=== PATIENT | female | born 1945 | race Caucasian/White ===

== ENCOUNTER 2024-05-26 06:53 | Inpatient (IN) ==
--- NOTE | 2024-04-25 11:33 | PAT Medication Instructions ---
Medication Instructions Date of Service April 25, 2024 Home Medications ascorbic acid (vitamin C) 100 mg tablet (Vitamin C) 100 mg PO DAILY cetirizine 10 mg tablet (Zyrtec) 10 mg PO QAM cholestyramine (with sugar) 4 gram oral powder 4 g PO QDD glucosamine sulfate 500 mg tablet (Glucosamine) 500 mg PO DAILY ibuprofen 400 mg tablet 400 mg PO BID lisinopril 10 mg tablet 10 mg PO QAM multivitamin 1 tab PO QAM tramadol 50 mg tablet 50 mg PO BID cholecalciferol (vitamin D3) 125 mcg (5,000 unit) tablet (Vitamin D3) 125 mcg PO QAM diclofenac sodium 1 % topical gel 2 g topical DAILY PRN prn vitamin E (dl, acetate) 180 mg (400 unit) capsule 180 mg PO QAM ASK your surgeon for instructions ibuprofen 400 mg tablet 400 mg PO BID STOP taking 2 weeks before surgery (or as soon as possible if surgery is within 2 weeks) glucosamine sulfate 500 mg tablet (Glucosamine) 500 mg PO DAILY vitamin E (dl, acetate) 180 mg (400 unit) capsule 180 mg PO QAM STOP taking 24 hours before surgery cholestyramine (with sugar) 4 gram oral powder 4 g PO QDD diclofenac sodium 1 % topical gel 2 g topical DAILY PRN prn DO NOT take the morning of surgery ascorbic acid (vitamin C) 100 mg tablet (Vitamin C) 100 mg PO DAILY cetirizine 10 mg tablet (Zyrtec) 10 mg PO QAM lisinopril 10 mg tablet 10 mg PO QAM multivitamin 1 tab PO QAM cholecalciferol (vitamin D3) 125 mcg (5,000 unit) tablet (Vitamin D3) 125 mcg PO QAM Take morning of surgery With a small sip of water, OTHERWISE NOTHING TO EAT OR DRINK AFTER MIDNIGHT: tramadol 50 mg tablet 50 mg PO BID Take evening before surgery tramadol 50 mg tablet 50 mg PO BID Other Notes If you have any questions please call us at [phone] or [phone] or [phone] or [phone]
--- NOTE | 2024-05-01 09:28 | Anesthesiology Consultation ---
Date of Service May 01, 2024 Assessment & Plan (1) Encounter for pre-operative examination: - Infectious disease screening: Per assessment on 05/01/24- No known recent infectious disease contacts or current infectious disease symptoms. - Preop testing: Preop CXR done 05/01/24 notes "Possible mild thoracic aortic aneurysm. Chest CT could be considered for further evaluation." Note written to PCP- Awaiting PCP preop CXR response + surgeon-ordered PCP preop evaluation (Dr. Tiago Razo/Debi, appt done 05/14). Chart Review Chart Review: Patient seen in Pre Admission Testing Teaching & Discussion Pre-Anesthesia Teaching/Discussion Notes: Instructed NPO after midnight before surgery,except medications with 15 cc of water. Medication instructions provided according to the PAT guidelines. History Surgery Operation Date: 05/26/24 07:45 Proposed Procedures p L4-S1 Decompression and Fusion, Spinal Cord Monitoring, Removal Intraspinous Device - Mikey Sanchez, DO Height/Weight Height: 5 ft 3.5 in Weight: 67.7 kg Allergies Allergy/AdvReac Type Severity Reaction Status Date / Time Sulfa (Sulfonamide Allergy Unknown N/V Verified 04/25/24 11:31 Antibiotics) Medications Home Medications Medication Instructions Recorded Confirmed Last Taken ascorbic acid (vitamin C) 100 mg 100 mg PO DAILY 03/10/24 04/25/24 Unknown tablet (Vitamin C) cetirizine 10 mg tablet (Zyrtec) 10 mg PO QAM 03/10/24 04/25/24 Unknown cholestyramine (with sugar) 4 gram 4 g PO QDD 03/10/24 04/25/24 Unknown oral powder glucosamine sulfate 500 mg tablet 500 mg PO DAILY 03/10/24 04/25/24 Unknown (Glucosamine) ibuprofen 400 mg tablet 400 mg PO BID 03/10/24 04/25/24 Unknown lisinopril 10 mg tablet 10 mg PO QAM 03/10/24 04/25/24 Unknown multivitamin 1 tab PO QAM 03/10/24 04/25/24 Unknown tramadol 50 mg tablet 50 mg PO BID 03/10/24 04/25/24 Unknown cholecalciferol (vitamin D3) 125 125 mcg PO QAM 04/25/24 04/25/24 Unknown mcg (5,000 unit) tablet (Vitamin D3) diclofenac sodium 1 % topical gel 2 g topical DAILY PRN prn 04/25/24 04/25/24 Unknown vitamin E (dl, acetate) 180 mg 180 mg PO QAM 04/25/24 04/25/24 Unknown (400 unit) capsule Past Medical History Medical History Arthritis Bunion Left great toe; to have repaired prior to back surgery (05/02/24) at [facility] CKD (chronic kidney disease) Environmental and seasonal allergies History of COVID-19 (2022) Symptoms resolved HTN (hypertension) Hyperlipidemia IBS (irritable bowel syndrome) Spinal stenosis Exercise / Class Metabolic Activity III < 4 Walking/Shop/Light housework Past Family History Family History Other No family history of adverse response to anesthesia Past Surgical History Surgical History History of cataract surgery B/L History of lumbar surgery History of open reduction and internal fixation (ORIF) procedure Femur right History of right hip replacement Hx of section Hx of colonoscopy Hx of tonsillectomy Past Anesthesia History No Hx of Anesthesia Complications and No Family Hx of Anesthesia Complications History of PONV No Hx of PONV and Hx of Motion Sickness Social History Smoking Status: Former smoker Do You Dip or Chew Tobacco: No Smoking End Date: Quit 2015 Hx Alcohol Use: No Hx Substance Use: No substance use type: does not use Review of Systems Patient denies chest pain, shortness of breath, fever, chills, cough, wheezing, palpitations. Physical Exam Vital Signs BP 129/82 P 68 TEMP 98.8 SP02 95%RA RESP 16 Physical Full cervical extension range of motion. Full TMJ range of motion. TMD > 3.5 finger breaths Mallampati Score II Dentition: missing molars, 2 implants, several crowns Lungs: clear throughout to auscultation Cardiac: regular rate and rhythm, no murmurs noted Spine: normal Carotid arteries: negative bruit Extremities: no LE edema Lab Results Anesthesia Preop Results Results Anesthesia Widget: WBC 10.66 K/ul (4.8-10.8) 05/01/24 Hgb 13.9 g/dl (12.0-16.0) 05/01/24 Hct 43.0 % (37.0-47.0) 05/01/24 Plt 267 K/uL (130-400) 05/01/24 Na 138 mmol/L (136-145) 05/01/24 K 4.9 mmol/L (3.5-5.1) 05/01/24 Cl 106 mmol/L (98-107) 05/01/24 CO2 25 mmol/L (21-32) 05/01/24 BUN 31 mg/dl (6-23) H 05/01/24 Creat 1.10 mg/dl (0.6-1.2) 05/01/24 Glucose Level 83 mg/dl (70-99(Fasting)) 05/01/24 PT 10.6 Seconds (9.0-12.0) 05/01/24 PTT 27 Seconds (21-31) 05/01/24 INR 1.0 (0.9-1.1) 05/01/24 Urine Color Yellow 05/01/24 Urine Appearance Clear (Clear) 05/01/24 Urine pH 5.0 (4.5-7.5) 05/01/24 Urine Specific [place] 1.009 (1.000-1.030) 05/01/24 Urine Protein Negative (Negative) 05/01/24 Urine Glucose (UA) Negative (Negative) 05/01/24 Urine Ketones Negative (Negative) 05/01/24 Urine Blood Negative (Negative) 05/01/24 Urine Nitrite Negative (Negative) 05/01/24 Urine Bilirubin Negative (Negative) 05/01/24 Urine Urobilinogen Negative (Negative) 05/01/24 Urine Leukocyte Esterase Trace (Negative) H 05/01/24 Urine WBC (Auto) 0-5 /hpf (0-5) 05/01/24 Urine RBC (Auto) 0-2 /hpf (0-2) 05/01/24 Urine Hyaline Casts (Auto) 0-2 /lpf (0-2) 05/01/24 Urine Epithelial Cells (Auto) 3-5 /hpf (0-2) H 05/01/24 Urine Bacteria (Auto) None Seen (None Seen) 05/01/24 Blood Type O Positive 05/01/24 Antibody Screen NEGATIVE 05/01/24 Testing Electrocardiogram Date: 04/18/24 SR with short MT at 65bpm. "Otherwise normal ECG" Chest X-Ray Date: 05/01/24 Findings: There are no confluent pulmonary infiltrates. The heart size is within normal limits. No pleural effusion or pneumothorax is seen. There is no definite pulmonary nodule. There is a possible mild thoracic aortic aneurysm. No fracture is noted. There is mild thoracic and lumbar scoliosis. Impression: Possible mild thoracic aortic aneurysm. Chest CT could be considered for further evaluation.
--- OUTSIDE RECORDS SUMMARY | 2024-05-26 07:10 | External Medical Summary | Continuity of Care Document ---
Author Name Unknown Organization [facility] Address [address] [place] [address] Phone [phone] Care Team Providers Care Wound Care Coordinator Name Role Phone Rheumatology [facility] - Rheumatology Care Team Inform ation [employer] [phone] Mikey Sanchez DO Care Team Information Receive r [phone] Problems Active Problems Provider Date Essential hypertension Tiago Razo MD Onset: 0 10/18/2012 Mixed hyperlipidemia Tiago Razo MD Onset: 02/2015 History of polyp of colon Tiago Razo MD Onset : 10/18/2012 Osteopenia Tiago Razo MD Onset: 03/17/20 15 History of tobacco use Tiago Razo MD Onset: 1 Osteoarthritis of multiple joints Tiago Razo MD Onset: 04/05/2016 Abdominal aortic aneurysm Tiago Razo MD Onset : 12/26/2023 Chronic kidney disease stage 3A Tiago Razo MD Onset: 02/06/2022 Irritable bowel syndrome with diarrhea Tiago sanchez MD Onset: 01/20/2021 Hypertensive chronic kidney disease with stage 1 through stage 4 chronic kidney disease, or unspecified chronic kidney disease Tiago Razo MD Onset: 10/24/2017 Chronic kidney disease stage 3 Tiago Razo MD Onset: 10/24/2017 Social History Type Date Description Comments Sex Unknown Tobacco Use Start: Unknown End: Unknown Former Cigarette Smoker quit 2012 (former 1/2 ppd x 30yr) Cigarette Use 09/29/2015 Quit - Age 68 Smoking Status Reviewed: 04/28/24 Former Cigarette Smo ker quit 2012 (former 1/2 ppd x 30yr) Tobacco Use Start: Unknown Never Smoked Cigars Tobacco Use Start: Unknown Never Smoked A Pipe Smokeless Tobacco Never Used Smo keless Tobacco ETOH Use Rarely consumes alcohol Recreational Drug Use Denies Drug Use Exercise Type/Frequency Exercises sporadi susan Allergies and adverse reactions Active Allergies Criticality Reaction | Severity Comments Date Environmental Unable to assess criticality 10/18/2012 Sulpha Unable to assess criticality any meds with sulpha 10/18/2012 Sulfa Antibiotics Unable to assess criticality Medications Active Medications SIG Qnty Indications Ordering Provider Date [id number] Packet Mix And Drink 1 Packet In 8 Ounces Of Fluid Daily 90units K58.0 Lacho Appiah MD 08/10/2023 [id number] Tablets Take 1 Tablet Daily 90tabs I10 Tiago Razo MD 04/03/2022 I12.9 Tramadol RAU75mp Tablets Take 3 Tablets Daily 270tabs M15.9 Tiago Razo MD 10/18/2012 Aspir-[address] 1 po qd 30tabs Tiago Razo MD Zyrtec Vktukyp24gi Capsules 1 tab daily. 30caps Tiago Razo MD Vitamin [id number] Capsules 1 po qd OTC Tiago Razo MD Vit C250mg Tablets 1 po qd otc Tiago sanchez MD Womens MultiCapsules 1 po qd Tiago sanchez MD Glucosamine 1500 [id number] Capsules 1 po qd Tiago Razo MD History Medications [id number] Capsules 1 by mouth twice a day 180caps M15.9 Tiago Razo MD 11/15/2023 - 04/28/2024 Immunizations CPT Code Status Date Vaccine Lot # [id number] Given 02/25/2024 Covid-19 Vaccine Pfizer A ge 12+ 78923 Given 02/25/2024 Influenza Vaccine-Adminis tered at another facility 56531 Given 05/19/2022 Shingrix 13101 Given 03/14/2022 Shingrix 03781 Given 02/06/2022 Moderna Covid-1 9 Vaccine 50mcg Booster-EMR Doc Only [id number] 79300 Given 07/25/2021 Pfizer Sars-Cov -2 (Cov-19) vacc 30mcg/0.3ML 12Y+ EMR Doc Only 73833 Given 08/20/2020 Pfizer Sars-Cov -2 (Cov-19) vacc 30mcg/0.3ML 12Y+ EMR Doc Only 83028 Given 07/25/2020 Pfizer Sars-Cov -2 (Cov-19) vacc 30mcg/0.3ML 12Y+ EMR Doc Only 15917 Given 03/22/2020 Influenza Vaccine-Adminis tered at another facility 93300 Given 03/26/2019 Influenza Vacci ne, Inactivated, Subunit, Adjuvanted, For Intrmusc 68537 Given 03/01/2018 Influenza Vac, Split, Preservative Free High Dose Age 65 & > [id number] 09439 Given 04/20/2017 Influenza Vac, Split, Preservative Free High Dose Age 65 & > [id number] 67664 Given 04/06/2016 Influenza Vac, Split, Preservative Free High Dose Age 65 & > [id number] 03422 Given 03/19/2015 Pneumococcal Conjugate-Pr evnar 13 65128 Given 03/19/2015 Influenza Vac, Split, Preservative Free High Dose Age 65 & > [id number] 70778 Given 03/04/2014 Influenza Vac, Split 6 Mo nths And Older 21374 Given 10/18/2012 Zostavax-PT Supplied [id number] 67437 Given 09/29/2011 Pneumococcal Vaccine/Pneu movax 23 20815 Given 06/14/2010 Influenza Vac, Split 6 Mo nths And Older 30333 Given 04/22/2009 Influenza Vac, Split 6 Mo nths And Older 15740 Given 04/30/2008 Influenza Vac, Split 6 Mo nths And Older 09341 Given 03/26/2003 Influenza Vac, Split 6 Mo nths And Older 42349 Given 05/05/2002 Influenza Vac, Split 6 Mo nths And Older Vital Signs Date Vital Result Comment 04/28/2024 8:53am BP Systolic 156 mmHg BP Diastolic 90 mmHg BP Systolic Recheck 140 mmHg BP Diastolic Recheck 88 mmHg Body Temperature 97.4 F Heart Rate 65 /min Respiratory Rate 16 /min Weight 149.12 lb Weight 67.643 kg Height 63 inches 5'3" BMI (Body Mass Index) 26.4 kg/m2 O2 % BldC Oximetry 98 % ra Delta Body Weight 115 lb 12/26/2023 8:27am BP Systolic 132 mmHg BP Diastolic 84 mmHg Heart Rate 76 /min Respiratory Rate 16 /min Weight 142.00 lb Weight 64.411 kg Height 63 inches 5'3" BMI (Body Mass Index) 25.2 kg/m2 Delta Body Weight 115 lb Results Test Acquired Date Facility Test Result H/L Range N ote BMP 12/19/2023 [facility] [address] [place] [address] [phone] Glucose 83 mg/dL 70-110 BUN 22 mg/dL 6-25 Creatinine 1.2 mg/dL 0.5-1.2 Sodium 144 mEq/L 135-145 Potassium 4.7 mEq/L 3.5-5.0 Chloride 108 mEq/L High 95-107 Co-2 27 mEq/L 24-31 Calcium 9.3 mg/dL 8.5-10.6 GFR 46 ML/MIN/1.73SQM Low >60 Procedures Date Code Description Status 04/28/2024 3079F PVRP Diastolic BP 80-89 MMHG Completed 04/28/2024 3077F PVRP Systolic BP >/= 140 MMH G Completed 12/26/2023 G2211 Continuation of care e/m vis it add on Completed 12/26/2023 3079F PVRP Diastolic BP 80-89 MMHG Completed 12/26/2023 3075F PVRP Systolic BP 130 To 139 MMHG Completed 12/19/2023 63080 Venipuncture Routine Complet ed 10/15/2023 [id number] Mammogram Completed 06/13/2022 [id number] Colonoscopy Completed 01/06/2020 [id number] Bone Mineral Density Test Co mpleted Medical Devices Description No Information Available Encounters Type Date Location Provider Dx Diagnosis Office Visit 04/28/2024 9:00a ALICE Ceja M79.675 Pain in left toe(s) I10 Essential (primary) hypertension N18.30 Chronic kidney disea se, stage 3 unspecified 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-4/unsp chr kdny I71.40 Abdominal aortic ane urysm, without rupture, unspecified M15.9 Polyosteoarthritis, unspecified Office Visit 12/26/2023 8:30a Debi Razo MD I 12.9 Hypertensive chronic kidney disease w stg 1-4/unsp chr kdny N18.31 Chronic kidney disea se, stage 3a I71.40 Abdominal aortic ane urysm, without rupture, unspecified E78.2 Mixed hyperlipidemia K58.0 Irritable bowel synd eva with diarrhea M15.9 Polyosteoarthritis, unspecified M54.50 Low back pain, unspe cified Assessments Date Code Description Provider 04/28/2024 M79.675 Pain in left toe(s) Jazzmine O . [place], [employer] 04/28/2024 I10 Essential (primary) hyperten marlene Jazzmine O. [place], [employer] 04/28/2024 N18.30 Chronic kidney disease, stag e 3 unspecified Jazzmine O. [place], [employer] 04/28/2024 I12.9 Hypertensive chr onic kidney disease with stage 1 through stage 4 chronic kidney disease, or unspecified chronic kidney disease Jazzmine O. [place], [employer] 04/28/2024 I71.40 Abdominal aortic aneurysm, without rupture, unspecified Jazzmine O. [place], [employer] 04/28/2024 M15.9 Polyosteoarthritis, unspecif ied Jazzmine O. [place], [employer] 12/31/2023 I71.40 Abdominal aortic aneurysm, without rupture, unspecified Daren Patel MD 12/31/2023 I71.40 Abdominal aortic aneurysm, without rupture, unspecified Tiago Razo MD 12/31/2023 I71.40 Abdominal aortic aneurysm, without rupture, unspecified ECHO [facility] 12/26/2023 I12.9 Hypertensive chr onic kidney disease with stage 1 through stage 4 chronic kidney disease, or unspecified chronic kidney disease Tiago Razo MD 12/26/2023 N18.31 Chronic kidney disease, stag e 3a Tiago Razo MD 12/26/2023 I71.40 Abdominal aortic aneurysm, without rupture, unspecified Tiago Razo MD 12/26/2023 E78.2 Mixed hyperlipidemia Tiago clay MD 12/26/2023 K58.0 Irritable bowel syndrome wit h diarrhea Tiago Razo MD 12/26/2023 M15.9 Polyosteoarthritis, unspecif ied Tiago Razo MD 12/26/2023 M54.50 Low back pain, unspecified A venkatesh Razo MD 12/19/2023 N18.31 Chronic kidney disease, stag e 3a Tiago Razo MD 12/19/2023 N18.31 Chronic kidney disease, johnathan e 3a [facility] Nurse Plan of Treatment Future Appointment(s):* 05/14/2024 9:00 am - ALICE Louie at [facility] 04/28/2024 - ALICE Benitez* M79.675 Pain in left toe(s)* Comments:* Pending osteotomy of left proximal phalanx of hallux with Dr. Dickson. Would prefer she have a 2nd pre operative exam to see how she does with this procedure prior to clearing for spinal fusion. * I10 Essential (primary) hypertension* Comments:* At goal on repeat. Patient sites white coat syndrome BP at goal at home over the weekend, per patient. * N18.30 Chronic kidney disease, stage 3 unspecified* Comments:* CKD 3b Recent GFR 43 * I12.9 Hypertensive chronic kidney disease with stage 1 through stage 4 chronic kidney disease, or unspecified chronic kidney disease* Comments:* labs stable BP improved on recheck. * I71.40 Abdominal aortic aneurysm, without rupture, unspecified* Comments:* small AAA 3.3 cm. asymptomatic * M15.9 Polyosteoarthritis, unspecified* Comments:* Refill requested to mail order pharmacy today. Functional Status Description No Information Available Mental Status Description No Information Available Referrals Refer to Reason for Referral Status Appt Mikey Mckeon DO Closed 4 [facility] [address] [place] [address], [id number] [phone]
--- OUTSIDE RECORDS SUMMARY | 2024-05-26 07:10 | External Medical Summary | Continuity of Care Document ---
Author Name Unknown Organization [facility] Address [address] [place] [address] Phone [phone] Care Team Providers Care Polishing Machine Operator Helper Name Role Phone Rheumatology [facility] - [facility]ology Care Team Inform ation Paper And Prints Restorer [phone] Mikey Sanchez DO Care Team Information Receive r [phone] Problems Active Problems Provider Date Essential hypertension [...] Quit - Age 68 Smoking Status Reviewed: 05/14/24 Former Cigarette Smo ker quit 2012 (former [...] Medications SIG Qnty Indications Ordering Provider Date Aacvybvqxfkemo0cd Packet Mix And Drink 1 Packet In 8 Ounces Of Fluid Daily 90units K58.0 Lacho Appiah MD 08/10/2023 Cimnizlbfc12ph Tablets Take 1 Tablet Daily 90tabs I10 Tiago Razo MD 04/03/2022 I12.9 Tramadol USR05qw Tablets Take 3 Tablets Daily 270tabs M15.9 Tiago Razo MD 10/18/2012 Zyrtec Abysemt38ad Capsules 1 tab daily. 30caps Tiago Razo MD Vitamin F3349Pyob Capsules 1 po qd OTC Tiago Razo MD Vit C250mg Tablets 1 po qd otc Tiago sanchez MD Womens MultiCapsules 1 po qd Tiago sanchez MD Glucosamine 1500 Btwlrau1039Aer Capsules 1 po qd Tiago Razo MD Vitamin D3 Extra Atygrenz46ynf (1000 Ut) Chewtabs 1 by mouth every day Unknown History Medications Dgafahzdpw664bs Capsules 1 by mouth twice a day 180caps M15.9 Tiago Razo MD 11/15/2023 - 04/28/2024 Immunizations CPT Code Status Date Vaccine Lot # [id number] Given 02/25/2024 Covid-19 Vaccine Pfizer A ge 12+ 15134 Given 02/25/2024 Influenza Vaccine-Adminis tered at another facility 72637 Given 05/19/2022 Shingrix 64861 Given 03/14/2022 Shingrix 92766 Given 02/06/2022 Moderna Covid-1 9 Vaccine 50mcg Booster-EMR Doc Only [id number] 27875 Given 07/25/2021 Pfizer Sars-Cov -2 (Cov-19) vacc 30mcg/0.3ML 12Y+ EMR Doc Only 29321 Given 08/20/2020 Pfizer Sars-Cov -2 (Cov-19) vacc 30mcg/0.3ML 12Y+ EMR Doc Only 03232 Given 07/25/2020 Pfizer Sars-Cov -2 (Cov-19) vacc 30mcg/0.3ML 12Y+ EMR Doc Only 64114 Given 03/22/2020 Influenza Vaccine-Adminis tered at another facility 41005 Given 03/26/2019 Influenza Vacci ne, Inactivated, Subunit, Adjuvanted, For Intrmusc 19981 Given 03/01/2018 Influenza Vac, Split, Preservative Free High Dose Age 65 & > [id number] 63521 Given 04/20/2017 Influenza Vac, Split, Preservative Free High Dose Age 65 & > [id number] 82012 Given 04/06/2016 Influenza Vac, Split, Preservative Free High Dose Age 65 & > [id number] 61816 Given 03/19/2015 Pneumococcal Conjugate-Pr evnar 13 64543 Given 03/19/2015 Influenza Vac, Split, Preservative Free High Dose Age 65 & > [id number] 59942 Given 03/04/2014 Influenza Vac, Split 6 Mo nths And Older 84838 Given 10/18/2012 Zostavax-PT Supplied [id number] 153 19444 Given 09/29/2011 Pneumococcal Vaccine/Pneu movax 23 93420 Given 06/14/2010 Influenza Vac, Split 6 Mo nths And Older 63127 Given 04/22/2009 Influenza Vac, Split 6 Mo nths And Older 11753 Given 04/30/2008 Influenza Vac, Split 6 Mo nths And Older 00977 Given 03/26/2003 Influenza Vac, Split 6 Mo nths And Older 13628 Given 05/05/2002 Influenza Vac, Split 6 Mo nths And Older Vital Signs Date Vital Result Comment 05/14/2024 9:11am BP Systolic 134 mmHg BP Diastolic 84 mmHg Body Temperature 98.0 F Heart Rate 72 /min Respiratory Rate 16 /min Weight 142.00 lb Weight 64.411 kg Height 63 inches 5'3" BMI (Body Mass Index) 25.2 kg/m2 O2 % BldC Oximetry 98 % [place] Body Weight 115 lb 04/28/2024 8:53am BP Systolic 156 mmHg BP Diastolic 90 mmHg BP Systolic Recheck 140 mmHg BP Diastolic Recheck 88 mmHg Body Temperature 97.4 F Heart Rate 65 /min Respiratory Rate 16 /min Weight 149.12 lb Weight 67.643 kg Height 63 inches 5'3" BMI (Body Mass Index) 26.4 kg/m2 O2 % BldC Oximetry 98 % ra [place] Body Weight 115 lb Results Test Acquired Date Facility Test Result H/L Range N ote BMP 12/19/2023 [facility]. [address] [place], [place] [address] [phone] Glucose 83 mg/dL 70-110 BUN 22 mg/dL 6-25 Creatinine 1.2 mg/dL 0.5-1.2 Sodium 144 mEq/L 135-145 Potassium 4.7 mEq/L 3.5-5.0 Chloride 108 mEq/L High 95-107 Co-2 27 mEq/L 24-31 Calcium 9.3 mg/dL 8.5-10.6 GFR 46 ML/MIN/1.73SQM Low >60 Procedures Date Code Description Status 05/14/2024 3079F PVRP Diastolic BP 80-89 MMHG Completed 05/14/2024 3075F PVRP Systolic BP 130 To 139 MMHG Completed 04/28/2024 3079F PVRP Diastolic BP 80-89 MMHG Completed 04/28/2024 3077F PVRP Systolic BP >/= 140 MMH G Completed 12/26/2023 G2211 Continuation of care e/m vis it add on Completed 12/26/2023 3079F PVRP Diastolic BP 80-89 MMHG Completed 12/26/2023 3075F PVRP Systolic BP 130 To 139 MMHG Completed 12/19/2023 85821 Venipuncture Routine Complet ed 10/15/2023 [id number] Mammogram Completed 06/13/2022 [id number] Colonoscopy Completed 01/06/2020 [id number] Bone Mineral Density Test Co mpleted Medical Devices Description No Information Available Encounters Type Date Location Provider Dx Diagnosis Office Visit 05/14/2024 9:00a ALICE Centeno Z01.810 Encounter for preprocedural cardiovascular examination M54.50 Low back pain, unspe cified I10 Essential (primary) hypertension 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-4/unsp chr kdny N18.31 Chronic kidney disea se, stage 3a I71.40 Abdominal aortic ane urysm, without rupture, unspecified Z68.25 Body mass index [BMI ] 25.0-25.9, adult Office Visit 04/28/2024 9:00a ALICE Villegas M79.675 Pain in left toe(s) I10 Essential [...] unspe cified Assessments Date Code Description Provider 05/14/2024 Z01.810 Encounter for pr eprocedural cardiovascular examination ALICE Louie 05/14/2024 M54.50 Low back pain, unspecified T ALICE Rubalcava 05/14/2024 I10 Essential (primary) hyperten marlene ALICE Louie 05/14/2024 I12.9 Hypertensive chr onic kidney disease with stage 1 through stage 4 chronic kidney disease, or unspecified chronic kidney disease ALICE Louie 05/14/2024 N18.31 Chronic kidney disease, stag e 3a ALICE Louie 05/14/2024 I71.40 Abdominal aortic aneurysm, without rupture, unspecified ALICE Louie 05/14/2024 Z68.25 Body mass index [BMI] 25.0-2 5.9, adult ALICE Louie 04/28/2024 M79.675 Pain in left toe(s) ALICE Jeffries 04/28/2024 I10 Essential (primary) hyperten marlene Jazzmine Alejandro, ALICE 04/28/2024 N18.30 Chronic kidney d isease, stage 3 unspecified Jazzmine Alejandro, ALICE 04/28/2024 I12.9 Hypertensive chr onic kidney disease with stage 1 through stage 4 chronic kidney disease, or unspecified chronic kidney disease Jazzmine Alejandro, ALICE 04/28/2024 I71.40 Abdominal aortic aneurysm, without rupture, unspecified Jazzmine Alejandro, ALICE 04/28/2024 M15.9 Polyosteoarthritis, unspecif ied Jazzmine Alejandro, ALICE 12/31/2023 I71.40 Abdominal aortic aneurysm, without rupture, unspecified Daren Patel MD 12/31/2023 I71.40 Abdominal aortic aneurysm, without rupture, unspecified Tiago Razo MD 12/31/2023 I71.40 Abdominal aortic aneurysm, without rupture, unspecified ECHO Debi 12/26/2023 I12.9 Hypertensive chr onic kidney disease with stage 1 through stage 4 chronic kidney disease, or unspecified chronic kidney disease Tiago Razo MD 12/26/2023 N18.31 Chronic kidney disease, statrey ludwig 3a Tiago Razo MD 12/26/2023 I71.40 Abdominal aortic aneurysm, without rupture, unspecified Tiago Razo MD 12/26/2023 E78.2 Mixed hyperlipidemia Tiago clay MD 12/26/2023 K58.0 Irritable bowel syndrome wit h diarrhea Tiago Razo MD 12/26/2023 M15.9 Polyosteoarthritis, unspecif ied Tiago Razo MD 12/26/2023 M54.50 Low back pain, unspecified A venkatesh Razo MD 12/19/2023 N18.31 Chronic kidney disease, bry Razo MD 12/19/2023 N18.31 Chronic kidney disease, bry Carrera Nurse Plan of Treatment 05/14/2024 - ALICE Louie* Z01.810 Encounter for preprocedural cardiovascular examination* Comments:* After reviewing patient's history, performing a thorough H&P and reviewing labs and EKG, patient is at an acceptable risk of proposed procedure scheduled on 05/26/[address] Sanchez. * Follow up:* please send completed consult note * M54.50 Low back pain, unspecified * I10 Essential (primary) hypertension* Comments:* BP at goal * I12.9 Hypertensive chronic kidney disease with stage 1 through stage 4 chronic kidney disease, or unspecified chronic kidney disease* Comments:* stable GFR 51 * N18.31 Chronic kidney disease, stage 3a* Comments:* as above * I71.40 Abdominal aortic aneurysm, without rupture, unspecified* Comments:* incidental finding small AAA 3.3 cm. asymptomatic * Z68.25 Body mass index [BMI] 25.0-25.9, adult Functional Status Description No Information Available Mental Status Description No Information Available Referrals Refer to Reason for Referral Status Appt Mikey Mckeon DO Closed [address] [place] [address] [place] [address], [place] [address] [phone]
--- OUTSIDE RECORDS SUMMARY | 2024-05-26 07:10 | External Medical Summary | Continuity of Care Document ---
Author Name Unknown Organization [facility] Address [address] [place] [address] Phone [phone] Care Team Providers Care Investment Broker Name Role Phone Rheumatology [facility] - Rheumatology Care Team Inform ation Home Health Administrator [phone] Mikey Sanchez DO Care Team Information Receive r [phone] Problems Active Problems Provider Date Essential hypertension [...] Medications SIG Qnty Indications Ordering Provider Date Minukzhjqdmtwq3uj Packet Mix And Drink 1 Packet In 8 Ounces Of Fluid Daily 90units K58.0 Lacho Appiah MD 08/10/2023 Nwsetaxtxa79te Tablets Take 1 Tablet Daily 90tabs I10 Tiago Razo MD 04/03/2022 I12.9 Tramadol YJY21ar Tablets Take 3 Tablets Daily 270tabs M15.9 Tiago Razo MD 10/18/2012 Zyrtec Gaxwexu57xm Capsules 1 tab daily. 30caps Tiago Razo MD Vitamin I8827Rejo Capsules 1 po qd OTC Tiago Razo MD Vit C250mg Tablets 1 po qd otc Tiago sanchez MD Womens MultiCapsules 1 po qd Tiago sanchez MD Glucosamine 1500 Blmpcck5727Jkn Capsules 1 po qd Tiago Razo MD Vitamin D3 Extra Elhupwhq73hbd (1000 Ut) Chewtabs 1 by mouth every day Unknown History Medications Gxncoabheo734gl Capsules 1 by mouth twice a day 180caps M15.9 Tiago Razo MD 11/15/2023 - 04/28/2024 Immunizations CPT Code Status Date Vaccine Lot # [id number] Given 02/25/2024 Covid-19 Vaccine Pfizer A ge 12+ 57849 Given 02/25/2024 Influenza Vaccine-Adminis tered at another facility 25153 Given 05/19/2022 Shingrix 29083 Given 03/14/2022 Shingrix 84885 Given 02/06/2022 Moderna Covid-1 9 Vaccine 50mcg Booster-EMR Doc Only [id number] 04577 Given 07/25/2021 Pfizer Sars-Cov -2 (Cov-19) vacc 30mcg/0.3ML 12Y+ EMR Doc Only 66161 Given 08/20/2020 Pfizer Sars-Cov -2 (Cov-19) vacc 30mcg/0.3ML 12Y+ EMR Doc Only 02765 Given 07/25/2020 Pfizer Sars-Cov -2 (Cov-19) vacc 30mcg/0.3ML 12Y+ EMR Doc Only 60024 Given 03/22/2020 Influenza Vaccine-Adminis tered at another facility 19429 Given 03/26/2019 Influenza Vacci ne, Inactivated, Subunit, Adjuvanted, For Intrmusc 05598 Given 03/01/2018 Influenza Vac, Split, Preservative Free High Dose Age 65 & > [id number] 34339 Given 04/20/2017 Influenza Vac, Split, Preservative Free High Dose Age 65 & > [id number] 37521 Given 04/06/2016 Influenza Vac, Split, Preservative Free High Dose Age 65 & > [id number] 79895 Given 03/19/2015 Pneumococcal Conjugate-Pr evnar 13 53896 Given 03/19/2015 Influenza Vac, Split, Preservative Free High Dose Age 65 & > [id number] 16733 Given 03/04/2014 Influenza Vac, Split 6 Mo nths And Older 08985 Given 10/18/2012 Zostavax-PT Supplied [id number] 153 05913 Given 09/29/2011 Pneumococcal Vaccine/Pneu movax 23 02282 Given 06/14/2010 Influenza Vac, Split 6 Mo nths And Older 02517 Given 04/22/2009 Influenza Vac, Split 6 Mo nths And Older 78476 Given 04/30/2008 Influenza Vac, Split 6 Mo nths And Older 86090 Given 03/26/2003 Influenza Vac, Split 6 Mo nths And Older 92846 Given 05/05/2002 Influenza Vac, Split 6 Mo nths And Older Vital Signs Date Vital Result Comment 05/14/2024 9:11am BP Systolic 134 mmHg BP Diastolic 84 mmHg Body Temperature 98.0 F Heart Rate 72 /min Respiratory Rate 16 /min Weight 142.00 lb Weight 64.411 kg Height 63 inches 5'3" BMI (Body Mass Index) 25.2 kg/m2 O2 % BldC Oximetry 98 % [place] Body Weight 115 lb 04/28/2024 8:53am BP Systolic 156 mmHg BP Diastolic 90 mmHg BP Systolic Recheck 140 mmHg BP Diastolic Recheck 88 mmHg Body Temperature 97.4 F Heart Rate 65 /min Respiratory Rate 16 /min Weight 149.12 lb Weight 67.643 kg Height 63 inches 5'3" BMI (Body Mass Index) 26.4 kg/m2 O2 % BldC Oximetry 98 % ra [place] Body Weight 115 lb Results Test Acquired Date Facility Test Result H/L Range N ote BMP 12/19/2023 [facility]. [address] [place], [place] [address] [phone] Glucose 83 mg/dL 70-110 BUN 22 mg/dL [...] BP 130 To 139 MMHG Completed 12/19/2023 87737 Venipuncture Routine Complet ed 10/15/2023 [id number] Mammogram Completed 06/13/2022 [id number] Colonoscopy Completed 01/06/2020 [id number] Bone Mineral Density Test Co mpleted Medical [...] Referral Status Appt Mikey Mckeon DO Closed [address] [place] [address] [place] [address], [place] [address] [phone]
--- OUTSIDE RECORDS SUMMARY | 2024-05-26 07:10 | External Medical Summary | Continuity of Care Document ---
Author Name Unknown Organization [facility] Address [address] [place] [address] Phone [phone] Care Team Providers Care Swimmer Name Role Phone Rheumatology [facility] - Rheumatology Care Team Inform ation Diet Supervisor [phone] Mikey Sanchez DO Care Team Information Receive r [phone] Problems Active Problems Provider Date Essential hypertension [...] Medications SIG Qnty Indications Ordering Provider Date Tfibrqbkvoygkz8cl Packet Mix And Drink 1 Packet In 8 Ounces Of Fluid Daily 90units K58.0 Lacho Appiah MD 08/10/2023 Zwmtqwdfri79fk Tablets Take 1 Tablet Daily 90tabs I10 Tiago Razo MD 04/03/2022 I12.9 Tramadol ZKN08bs Tablets Take 3 Tablets Daily 270tabs M15.9 Tiago Razo MD 10/18/2012 Zyrtec Eepwwdn05fx Capsules 1 tab daily. 30caps Tiago Razo MD Vitamin U5059Ovod Capsules 1 po qd OTC Tiago Razo MD Vit C250mg Tablets 1 po qd otc Tiago sanchez MD Womens MultiCapsules 1 po qd Tiago sanchez MD Glucosamine 1500 Tbvvmvv5797Ahc Capsules 1 po qd Tiago Razo MD Vitamin D3 Extra Afvojmkq13wtu (1000 Ut) Chewtabs 1 by mouth every day Unknown History Medications Gswypkkjbl288iv Capsules 1 by mouth twice a day 180caps M15.9 Tiago Razo MD 11/15/2023 - 04/28/2024 Immunizations CPT Code Status Date Vaccine Lot # [id number] Given 02/25/2024 Covid-19 Vaccine Pfizer A ge 12+ 89313 Given 02/25/2024 Influenza Vaccine-Adminis tered at another facility 51389 Given 05/19/2022 Shingrix 37090 Given 03/14/2022 Shingrix 26328 Given 02/06/2022 Moderna Covid-1 9 Vaccine 50mcg Booster-EMR Doc Only [id number] 33736 Given 07/25/2021 Pfizer Sars-Cov -2 (Cov-19) vacc 30mcg/0.3ML 12Y+ EMR Doc Only 01379 Given 08/20/2020 Pfizer Sars-Cov -2 (Cov-19) vacc 30mcg/0.3ML 12Y+ EMR Doc Only 69891 Given 07/25/2020 Pfizer Sars-Cov -2 (Cov-19) vacc 30mcg/0.3ML 12Y+ EMR Doc Only 23075 Given 03/22/2020 Influenza Vaccine-Adminis tered at another facility 27657 Given 03/26/2019 Influenza Vacci ne, Inactivated, Subunit, Adjuvanted, For Intrmusc 59548 Given 03/01/2018 Influenza Vac, Split, Preservative Free High Dose Age 65 & > [id number] 40434 Given 04/20/2017 Influenza Vac, Split, Preservative Free High Dose Age 65 & > [id number] 15785 Given 04/06/2016 Influenza Vac, Split, Preservative Free High Dose Age 65 & > [id number] 41613 Given 03/19/2015 Pneumococcal Conjugate-Pr evnar 13 50163 Given 03/19/2015 Influenza Vac, Split, Preservative Free High Dose Age 65 & > [id number] 10770 Given 03/04/2014 Influenza Vac, Split 6 Mo nths And Older 20875 Given 10/18/2012 Zostavax-PT Supplied [id number] 153 10650 Given 09/29/2011 Pneumococcal Vaccine/Pneu movax 23 37243 Given 06/14/2010 Influenza Vac, Split 6 Mo nths And Older 75250 Given 04/22/2009 Influenza Vac, Split 6 Mo nths And Older 96179 Given 04/30/2008 Influenza Vac, Split 6 Mo nths And Older 81781 Given 03/26/2003 Influenza Vac, Split 6 Mo nths And Older 27357 Given 05/05/2002 Influenza Vac, Split 6 Mo nths And Older Vital Signs Date Vital Result Comment 05/14/2024 9:11am BP Systolic 134 mmHg BP Diastolic 84 mmHg Body Temperature 98.0 F Heart Rate 72 /min Respiratory Rate 16 /min Weight 142.00 lb Weight 64.411 kg Height 63 inches 5'3" BMI (Body Mass Index) 25.2 kg/m2 O2 % BldC Oximetry 98 % [place] Body Weight 115 lb 04/28/2024 8:53am BP Systolic 156 mmHg BP Diastolic 90 mmHg BP Systolic Recheck 140 mmHg BP Diastolic Recheck 88 mmHg Body Temperature 97.4 F Heart Rate 65 /min Respiratory Rate 16 /min Weight 149.12 lb Weight 67.643 kg Height 63 inches 5'3" BMI (Body Mass Index) 26.4 kg/m2 O2 % BldC Oximetry 98 % ra [place] Body Weight 115 lb Results Test Acquired Date Facility Test Result H/L Range N ote BMP 12/19/2023 [facility]. [address] [place], [place] [address] [phone] Glucose 83 mg/dL 70-110 BUN 22 mg/dL [...] BP 130 To 139 MMHG Completed 12/19/2023 17617 Venipuncture Routine Complet ed 10/15/2023 [id number] Mammogram Completed 06/13/2022 [id number] Colonoscopy Completed 01/06/2020 [id number] Bone Mineral Density Test Co mpleted Medical [...] Referral Status Appt Mikey Mckeon DO Closed [address] [place] [address] [place] [address], [place] [address] [phone]
--- OUTSIDE RECORDS SUMMARY | 2024-05-26 07:10 | External Medical Summary | Continuity of Care Document ---
Author Name Unknown Organization [facility] Address [address] [place] [address] Phone [phone] Care Team Providers Care Limb Driver Name Role Phone Rheumatology [facility] - Rheumatology Care Team Inform ation Sales And Marketing Vice President [phone] Mikey Sanchez DO Care Team Information Receive r [phone] Problems Active Problems Provider Date Essential hypertension [...] Medications SIG Qnty Indications Ordering Provider Date Zqowfidgvwsspj0jl Packet Mix And Drink 1 Packet In 8 Ounces Of Fluid Daily 90units K58.0 Lacho Appiah MD 08/10/2023 Pszuzsqqia93bh Tablets Take 1 Tablet Daily 90tabs I10 Tiago Razo MD 04/03/2022 I12.9 Tramadol MEA28qo Tablets Take 3 Tablets Daily 270tabs M15.9 Tiago Razo MD 10/18/2012 Zyrtec Xoerlro52uc Capsules 1 tab daily. 30caps Tiago Razo MD Vitamin V8195Bpff Capsules 1 po qd OTC Tiago Razo MD Vit C250mg Tablets 1 po qd otc Tiago sanchez MD Womens MultiCapsules 1 po qd Tiago sanchez MD Glucosamine 1500 Uzaspwj7510Wom Capsules 1 po qd Tiago Razo MD Vitamin D3 Extra Xxnraexf54oat (1000 Ut) Chewtabs 1 by mouth every day Unknown Immunizations CPT Code Status Date Vaccine Lot # [id number] Given 02/25/2024 Covid-19 Vaccine Pfizer A 12+ 11744 Given 02/25/2024 Influenza Vaccine-Adminis tered at another facility 49831 Given 05/19/2022 Shingrix 12411 Given 03/14/2022 Shingrix 49390 Given 02/06/2022 Moderna Covid-1 9 Vaccine 50mcg Booster-EMR Doc Only [id number] 76879 Given 07/25/2021 Pfizer Sars-Cov -2 (Cov-19) vacc 30mcg/0.3ML 12Y+ EMR Doc Only 99133 Given 08/20/2020 Pfizer Sars-Cov -2 (Cov-19) vacc 30mcg/0.3ML 12Y+ EMR Doc Only 78884 Given 07/25/2020 Pfizer Sars-Cov -2 (Cov-19) vacc 30mcg/0.3ML 12Y+ EMR Doc Only 79278 Given 03/22/2020 Influenza Vaccine-Adminis tered at another facility 41356 Given 03/26/2019 Influenza Vacci ne, Inactivated, Subunit, Adjuvanted, For Intrmusc 97332 Given 03/01/2018 Influenza Vac, Split, Preservative Free High Dose Age 65 & > [id number] 93966 Given 04/20/2017 Influenza Vac, Split, Preservative Free High Dose Age 65 & > [id number] 46658 Given 04/06/2016 Influenza Vac, Split, Preservative Free High Dose Age 65 & > [id number] 35639 Given 03/19/2015 Pneumococcal Conjugate-Pr evnar 13 37336 Given 03/19/2015 Influenza Vac, Split, Preservative Free High Dose Age 65 & > [id number] 51183 Given 03/04/2014 Influenza Vac, Split 6 Mo nths And Older 18998 Given 10/18/2012 Zostavax-PT Supplied [id number] 153 17925 Given 09/29/2011 Pneumococcal Vaccine/Pneu movax 23 85069 Given 06/14/2010 Influenza Vac, Split 6 Mo nths And Older 23585 Given 04/22/2009 Influenza Vac, Split 6 Mo nths And Older 29105 Given 04/30/2008 Influenza Vac, Split 6 Mo nths And Older 55224 Given 03/26/2003 Influenza Vac, Split 6 Mo nths And Older 38972 Given 05/05/2002 Influenza Vac, Split 6 Mo nths And Older Vital Signs Date Vital Result Comment 05/14/2024 9:11am BP Systolic 134 mmHg BP Diastolic 84 mmHg Body Temperature 98.0 F Heart Rate 72 /min Respiratory Rate 16 /min Weight 142.00 lb Weight 64.411 kg Height 63 inches 5'3" BMI (Body Mass Index) 25.2 kg/m2 O2 % BldC Oximetry 98 % [place] Body Weight 115 lb 04/28/2024 8:53am BP Systolic 156 mmHg BP Diastolic 90 mmHg BP Systolic Recheck 140 mmHg BP Diastolic Recheck 88 mmHg Body Temperature 97.4 F Heart Rate 65 /min Respiratory Rate 16 /min Weight 149.12 lb Weight 67.643 kg Height 63 inches 5'3" BMI (Body Mass Index) 26.4 kg/m2 O2 % BldC Oximetry 98 % ra [place] Body Weight 115 lb Results Test Acquired Date Facility Test Result H/L Range N ote BMP 12/19/2023 [facility]. [address] [place], [place] [address] [phone] Glucose 83 mg/dL 70-110 BUN 22 mg/dL [...] BP 130 To 139 MMHG Completed 12/19/2023 04130 Venipuncture Routine Complet ed 10/15/2023 [id number] Mammogram Completed 06/13/2022 [id number] Colonoscopy Completed 01/06/2020 [id number] Bone Mineral Density Test Co mpleted Medical [...] Jeffries 04/28/2024 I10 Essential (primary) hyperten marlene ALICE Benitez 04/28/2024 N18.30 Chronic kidney d isease, stage 3 unspecified ALICE Benitez 04/28/2024 I12.9 Hypertensive chr onic kidney disease [...] Abdominal aortic aneurysm, without rupture, unspecified ECHO US Carrera 12/26/2023 I12.9 Hypertensive chr onic kidney disease with stage 1 through stage 4 chronic kidney disease, or unspecified chronic kidney disease Tiago Razo MD 12/26/2023 N18.31 Chronic kidney disease, stamadonna Razo MD 12/26/2023 I71.40 Abdominal aortic aneurysm, [...] Referral Status Appt Mikey Mckeon DO Closed [address] [place] [address] [place] [address], [place] [address] [phone]
--- OUTSIDE RECORDS SUMMARY | 2024-05-26 07:10 | External Medical Summary | Continuity of Care Document ---
Author Name Unknown Organization [facility] Address [address] [place] [address] Phone [phone] Care Team Providers Care Director Of Procurement Name Role Phone Rheumatology [facility] - Rheumatology Care Team Inform ation Finishing Powder Press Operator [phone] Mikey Sanchez DO Care Team Information Receive r [phone] Problems Active Problems Provider Date Essential hypertension [...] Medications SIG Qnty Indications Ordering Provider Date Hzlygmcawjgpsw7uo Packet Mix And Drink 1 Packet In 8 Ounces Of Fluid Daily 90units K58.0 Lacho Appiah MD 08/10/2023 [id number] Tablets Take 1 Tablet Daily 90tabs I10 Tiago Razo MD 04/03/2022 I12.9 Tramadol KSS48gp Tablets Take 3 Tablets Daily 270tabs M15.9 Tiago Razo MD 10/18/2012 Zyrtec Fqrvnhx25gn Capsules 1 tab daily. 30caps Tiago Razo MD Vitamin M6225Cntu Capsules 1 po qd OTC Tiago Razo MD Vit C250mg Tablets 1 po qd otc Tiago sanchez MD Womens MultiCapsules 1 po qd Tiago sanchez MD Glucosamine 1500 [id number] Capsules 1 po qd Tiago Razo MD Vitamin D3 Extra Tgykthyg54jiv (1000 Ut) Chewtabs 1 by mouth every day Unknown History Medications [id number] Capsules 1 by mouth twice a day 180caps M15.9 Tiago Razo MD 11/15/2023 - 04/28/2024 Immunizations CPT Code Status Date Vaccine Lot # [id number] Given 02/25/2024 Covid-19 Vaccine Pfizer A ge 12+ 06210 Given 02/25/2024 Influenza Vaccine-Adminis tered at another facility 99213 Given 05/19/2022 Shingrix 56693 Given 03/14/2022 Shingrix 80029 Given 02/06/2022 Moderna Covid-1 9 Vaccine 50mcg Booster-EMR Doc Only [id number] 94075 Given 07/25/2021 Pfizer Sars-Cov -2 (Cov-19) vacc 30mcg/0.3ML 12Y+ EMR Doc Only 80987 Given 08/20/2020 Pfizer Sars-Cov -2 (Cov-19) vacc 30mcg/0.3ML 12Y+ EMR Doc Only 32520 Given 07/25/2020 Pfizer Sars-Cov -2 (Cov-19) vacc 30mcg/0.3ML 12Y+ EMR Doc Only 44642 Given 03/22/2020 Influenza Vaccine-Adminis tered at another facility 46799 Given 03/26/2019 Influenza Vacci ne, Inactivated, Subunit, Adjuvanted, For Intrmusc 94493 Given 03/01/2018 Influenza Vac, Split, Preservative Free High Dose Age 65 & > [id number] 79100 Given 04/20/2017 Influenza Vac, Split, Preservative Free High Dose Age 65 & > [id number] 19407 Given 04/06/2016 Influenza Vac, Split, Preservative Free High Dose Age 65 & > [id number] 25721 Given 03/19/2015 Pneumococcal Conjugate-Pr evnar 13 85925 Given 03/19/2015 Influenza Vac, Split, Preservative Free High Dose Age 65 & > [id number] 73648 Given 03/04/2014 Influenza Vac, Split 6 Mo nths And Older 24161 Given 10/18/2012 Zostavax-PT Supplied [id number] 11029 Given 09/29/2011 Pneumococcal Vaccine/Pneu movax 23 17986 Given 06/14/2010 Influenza Vac, Split 6 Mo nths And Older 45757 Given 04/22/2009 Influenza Vac, Split 6 Mo nths And Older 81196 Given 04/30/2008 Influenza Vac, Split 6 Mo nths And Older 66027 Given 03/26/2003 Influenza Vac, Split 6 Mo nths And Older 94046 Given 05/05/2002 Influenza Vac, Split 6 Mo nths And Older Vital Signs Date Vital Result Comment 05/14/2024 9:11am BP Systolic 134 mmHg BP Diastolic 84 mmHg Body Temperature 98.0 F Heart Rate 72 /min Respiratory Rate 16 /min Weight 142.00 lb Weight 64.411 kg Height 63 inches 5'3" BMI (Body Mass Index) 25.2 kg/m2 O2 % BldC Oximetry 98 % [place] Body Weight 115 lb 04/28/2024 8:53am BP Systolic 156 mmHg BP Diastolic 90 mmHg BP Systolic Recheck 140 mmHg BP Diastolic Recheck 88 mmHg Body Temperature 97.4 F Heart Rate 65 /min Respiratory Rate 16 /min Weight 149.12 lb Weight 67.643 kg Height 63 inches 5'3" BMI (Body Mass Index) 26.4 kg/m2 O2 % BldC Oximetry 98 % ra [place] Body Weight 115 lb Results Test Acquired Date Facility Test Result H/L Range N ote BMP 12/19/2023 [facility]. [address], [place] [id number] [phone] Glucose 83 mg/dL 70-110 BUN 22 mg/dL [...] BP 130 To 139 MMHG Completed 12/19/2023 57948 Venipuncture Routine Complet ed 10/15/2023 [id number] Mammogram Completed 06/13/2022 [id number] Colonoscopy Completed 01/06/2020 [id number] Bone Mineral Density Test Co mpleted Medical [...] Referral Status Appt Mikey Mckeon DO Closed [address] [place] [address] [place] [address], [place] [address] [phone]
[2024-05-26] MEDS: VANCOMYCIN HCL 1,000 MG/270 ML BAG IV SCH (07:45)
[2024-05-26] MEDS: ACETAMINOPHEN 500 MG TAB PO SCH (08:00)
[2024-05-26] MEDS: GABAPENTIN 300 MG CAP PO SCH (08:00)
[2024-05-26] MEDS: CeleBREX 200 MG CAP PO SCH (08:00)
[2024-05-26] MEDS: LR 15ML/HR IV SCH (08:01)
[2024-05-26] MEDS: LR 60ML/HR IV SCH (08:01)
[2024-05-26] MEDS ORDERED: fentaNYL citrate PF 100 MCG/2 ML VIAL ONE (08:37)
[2024-05-26] MEDS ORDERED: LIDOCAINE 2% 2 ML VIAL/AMP(20MG/ML) INFIL ONE (08:37)
[2024-05-26] MEDS ORDERED: DEXAMETHASONE SOD INJ 4 MG/ML VIAL ONE (08:37)
[2024-05-26] MEDS ORDERED: ROCURONIUM BROMIDE 10 MG/ML 5 ML VIAL IV ONE (08:37)
[2024-05-26] MEDS ORDERED: PROPOFOL IV EMULSION 10 MG/ML 20 ML VIAL IV ONE (08:37)
[2024-05-26] MEDS ORDERED: ONDANSETRON INJ 2 MG/ML 2 ML VIAL ONE (08:37)
--- NOTE | 2024-05-26 09:13 | History & Physical Bridge Note ---
Date of Service May 26, 2024 History & Physical Bridge Note I have examined the patient, reviewed the History & Physical and in the interval since the performance of the History & Physical I have noted the following changes of clinical significance: no changes noted
--- NOTE | 2024-05-26 09:13 | History & Physical Report ---
Date of Service May 26, 2024 Assessment & Plan (1) Lumbosacral spondylosis with radiculopathy: Plan: L4-S1 decompression and fusion removal of interspinous device History of Present Illness Chief Complaint: Back and leg pain Primary Care Provider: NO PCP This is a 71-year-old female presents chronic persistent back and leg pain and failing course of nonoperative care she is here for surgical invention. Allergies Allergy/AdvReac Type Severity Reaction Status Date / Time Sulfa (Sulfonamide Allergy Unknown N/V Verified 05/26/24 07:40 Antibiotics) Home Medications Medication Instructions Recorded Confirmed Type ascorbic acid (vitamin C) 100 mg 100 mg PO DAILY 03/10/24 05/26/24 History tablet (Vitamin C) cetirizine 10 mg tablet (Zyrtec) 10 mg PO QAM 03/10/24 05/26/24 History cholestyramine (with sugar) 4 gram 4 g PO QDD 03/10/24 05/26/24 History oral powder glucosamine sulfate 500 mg tablet 500 mg PO DAILY 03/10/24 05/26/24 History (Glucosamine) ibuprofen 400 mg tablet 400 mg PO BID 03/10/24 05/26/24 History lisinopril 10 mg tablet 10 mg PO QAM 03/10/24 05/26/24 History multivitamin 1 tab PO QAM 03/10/24 05/26/24 History tramadol 50 mg tablet 50 mg PO BID 03/10/24 05/26/24 History cholecalciferol (vitamin D3) 125 125 mcg PO QAM 04/25/24 05/26/24 History mcg (5,000 unit) tablet (Vitamin D3) diclofenac sodium 1 % topical gel 2 g topical DAILY PRN prn 04/25/24 05/26/24 History vitamin E (dl, acetate) 180 mg 180 mg PO QAM 04/25/24 05/26/24 History (400 unit) capsule Past Med/Surg History Problem List (Updated 05/26/24 @ 09:13 by Mikey Sanchez DO) Lumbosacral spondylosis with radiculopathy Encounter for pre-operative examination Medical History Arthritis Bunion Left great toe; to have repaired prior to back surgery (05/02/24) at [facility] CKD (chronic kidney disease) Environmental and seasonal allergies History of COVID-19 (2022) Symptoms resolved HTN (hypertension) Hyperlipidemia IBS (irritable bowel syndrome) Spinal stenosis Surgical History History of cataract surgery B/L History of lumbar surgery History of open reduction and internal fixation (ORIF) procedure Femur right History of right hip replacement Hx of section Hx of colonoscopy Hx of tonsillectomy Family History Other No family history of adverse response to anesthesia Social History Smoking Status: Former smoker Tobacco Type: Cigarettes Smoking End Date: Quit 2015; Second Hand Exposure: No; Do You Dip or Chew Tobacco: No; Tobacco Cessation Education Requested by Patient: No Hx Alcohol Use: No Hx Substance Use: No Preferred Language: Qatari Communication Ability: Effective Energy Efficient Site Manager Required: No Beliefs That Will Affect Care: None Current Living Situation: Spouse Other Information That Helps Us Care for You: No Feels Safe at Home: Yes Safety Concerns: Feels Safe At This Time Assistive Devices: Cane and Glasses Assistive Devices Comment: can prn Physical Exam Physical Exam: Patient is alert and oriented heart regular in rhythm lungs clear Results & Data Results & Data Vital Signs (Past 12 Hours) Vital Signs Temp Pulse Resp BP Pulse Ox O2 Del Method 05/26/24 07:43 37 C 70 20 139/73 95 Room Air
[2024-05-26] MEDS ORDERED: KETAMINE HCL 10MG/ML SYR ONE (09:22)
--- NOTE | 2024-05-26 09:41 | Anesthesiology Consultation ---
Date of Service May 26, 2024 Assessment & Plan Chart Review Chart Review: Acceptable Risk for Surgery Consults Requested none History Surgery Operation Date: 05/26/24 09:35 Proposed Procedures p L4-S1 Decompression and Fusion, Removal Intraspinous Device, Spinal Cord Monitoring - Mikey Sanchez DO Height/Weight Height: 5 ft 4 in Weight: 67.4 kg Allergies Allergy/AdvReac Type Severity Reaction Status Date / Time Sulfa (Sulfonamide Allergy Unknown N/V Verified 05/26/24 07:40 Antibiotics) Medications Home Medications Medication Instructions Recorded Confirmed Last Taken ascorbic acid (vitamin C) 100 mg 100 mg PO DAILY 03/10/24 05/26/24 05/25/24 07:00 tablet (Vitamin C) cetirizine 10 mg tablet (Zyrtec) 10 mg PO QAM 03/10/24 05/26/24 05/25/24 07:00 cholestyramine (with sugar) 4 gram 4 g PO QDD 03/10/24 05/26/24 05/24/24 17:00 oral powder glucosamine sulfate 500 mg tablet 500 mg PO DAILY 03/10/24 05/26/24 05/12/24 (Glucosamine) ibuprofen 400 mg tablet 400 mg PO BID 03/10/24 05/26/24 05/19/24 lisinopril 10 mg tablet 10 mg PO QAM 03/10/24 05/26/24 05/25/24 07:00 multivitamin 1 tab PO QAM 03/10/24 05/26/24 05/12/24 tramadol 50 mg tablet 50 mg PO BID 03/10/24 05/26/24 05/26/24 04:30 cholecalciferol (vitamin D3) 125 125 mcg PO QAM 04/25/24 05/26/24 05/25/24 07:00 mcg (5,000 unit) tablet (Vitamin D3) diclofenac sodium 1 % topical gel 2 g topical DAILY PRN prn 04/25/24 05/26/24 05/24/24 08:00 vitamin E (dl, acetate) 180 mg 180 mg PO QAM 04/25/24 05/26/24 05/12/24 (400 unit) capsule Active Medications Generic Name Dose Route Start Last Admin Trade Name Freq PRN Reason Stop Dose Admin Acetaminophen 1,000 mg 05/26/24 06:00 05/26/24 08:00 Acetaminophen 500 Mg Tab PO 05/26/24 18:00 1,000 mg PREOP ESTEFANI Administration Celecoxib 200 mg 05/26/24 06:00 05/26/24 08:00 Celebrex 200 Mg Cap PO 05/26/24 18:00 200 mg PREOP ESTEFANI Administration Gabapentin 300 mg 05/26/24 06:00 05/26/24 08:00 Gabapentin 300 Mg Cap PO 05/26/24 18:00 300 mg PREOP ESTEFANI Administration Lactated Ringer's 1,000 mls @ 15 mls/hr 05/26/24 06:00 05/26/24 08:03 Lr IV 05/27/24 05:59 0 mls/hr .Q24H ESTEFANI Infusion Lactated Ringer's 1,000 mls @ 60 mls/hr 05/26/24 06:00 05/26/24 08:01 Lr IV 05/26/24 22:39 Not Given .[id number] ESTEFANI Vancomycin HCl 1,000 mg in 270 mls @ 242 mls/hr 05/26/24 06:00 05/26/24 09:25 Vancomycin Hcl IV 05/26/24 18:00 Infused PREOP ESETFANI Infusion NPO Date Last Intake of Fluids: 05/25/24 Time Last Intake of Fluids: 17:45 Last Intake of Fluids Comment: 0430 sip water for meds Date Last Intake of Solids: 05/25/24 Time Last Intake of Solids: 21:30 Past Medical History Medical History Arthritis Bunion Left great toe; to have repaired prior to back surgery (05/02/24) at [facility] CKD (chronic kidney disease) Environmental and seasonal allergies History of COVID-19 (2022) Symptoms resolved HTN (hypertension) Hyperlipidemia IBS (irritable bowel syndrome) Spinal stenosis Past Family History Family History Other No family history of adverse response to anesthesia Past Surgical History Surgical History History of cataract surgery B/L History of lumbar surgery History of open reduction and internal fixation (ORIF) procedure Femur right History of right hip replacement Hx of section Hx of colonoscopy Hx of tonsillectomy Social History Smoking Status: Former smoker Do You Dip or Chew Tobacco: No Smoking End Date: Quit 2015 Hx Alcohol Use: No Hx Substance Use: No substance use type: does not use Physical Exam Vital Signs Last Vital Signs Temp 37 C 05/26/24 07:43 Pulse 70 05/26/24 07:43 Resp 20 05/26/24 07:43 BP 139/73 05/26/24 07:43 Pulse Ox 95 05/26/24 07:43 O2 Del Method Room Air 05/26/24 07:43 Testing Laboratory Results Blood Type O Positive 05/26/24 07:28 Antibody Screen NEGATIVE 05/26/24 07:28
[2024-05-26] MEDS ORDERED: ePHEDrine sulfate 50 MG/ML AMP IV PRN (09:49)
[2024-05-26] MEDS ORDERED: PROMETHAZINE HCL 6.25 MG in SODIUM CHLORIDE 0.9% 50 ML IV PRN (09:49)
[2024-05-26] MEDS ORDERED: ONDANSETRON INJ 2 MG/ML 2 ML VIAL IV PRN ×2 (09:49→12:47)
[2024-05-26] MEDS ORDERED: HYDROmorphone INJ 2 MG/ML SYR/VIAL IV PRN (09:49)
[2024-05-26] MEDS ORDERED: ATROPINE SULFATE 0.1 MG/ML 10ML SYR IV PRN (09:49)
[2024-05-26] MEDS ORDERED: PHENYLEPHRINE 100MCG/ML 5ML SYR ONE ×2 (09:58→10:43)
[2024-05-26] MEDS ORDERED: ePHEDrine sulfate 50 MG/5 ML SYR ONE (09:58)
[2024-05-26] MEDS: BUPIVACAINE/EPINEPHRINE 0.25% 1:200,000 30 ML VIAL ONE (10:04)
[2024-05-26] MEDS: ceFAZolin 330 MG/ML 1 GM VIAL ONE (10:05)
[2024-05-26] MEDS: FLOSEAL HEMOSTATIC MATRIX 10ML TOP ONE (11:00)
[2024-05-26] MEDS ORDERED: SUGAMMADEX SODIUM 200 MG/2 ML VIAL IV ONE (11:18)
--- NOTE | 2024-05-26 11:25 | Operative Report ---
Post Operative Report Pre & Post Diagnosis Operation Date: 05/26/24 09:35 Pre-Op Diagnosis: #1 lumbar spondylosis with radiculopathy #2 lumbar spondylolisthesis L4-5 #3 lumbar spinal stenosis with neurogenic claudication Post-Op Diagnosis: Same I identified the patient and participated in the time-out.: Yes Procedure Operation Date: 05/26/24 09:35 Actual Procedures #1 removal of posterior instrumentation L4-5. #2 revision decompression with bilateral medial facetectomies and foraminotomies L3-L4, L4-L5 L5-S1. #3 posterior spinal fusion L4-S1. #4 placement posterior instrumentation L4-S1. #5 interbody fusion L4-5. #6 placement of Spira 9 x 26 mm at L4-5. #7 placement infuse collagen sponge, with Koros in the posterior lateral gutters and os design in the interbody space. #8 placement locally harvested morselized autograft posterior gutters. #9 placement of versa wrap over the exposed dura. Surgeon Mikey Sanchez, Console Operator Jennifer Robledo Estimated Blood Loss 150 Findings Consistent with Post-Op Diagnosis Specimens None Indications This is a 79-year-old female presents above-mentioned diagnosis after failing course of nonoperative care is here for surgical invention. Description of Procedure Patient was met with identified informed consent obtained. Patient was then taken to the operative suite underwent intubation placed in a prone position on the Maury table atop the Skyler frame. All bony promises well-padded eyes inspected to ensure no external pressure placed upon them. This point the lumbar spine was prepped and draped in normal sterile fashion. Sharp dissection with the assistance of Bovie cautery form down to and exposing the instru mentation and remaining lamina and transverse processes of L4-L5 and the sacral ala bilaterally. Then proceeded to move the interlaminar construct at L4-L5. I then performed a complete revision laminectomy of L5 with bilateral medial facetectomies and foraminotomies followed by complete laminectomy of L4 with bilateral medial facetectomies and foraminotomies and lastly partial laminectomy of L3 with bilateral medial facetectomies to address all spinal stenosis. Pedicle screws were then placed in L4-L5 and S1 levels bilaterally with assistance of fluoroscopy and appropriately sized rolan placed. By way of a transforaminal approach on the right complete discectomy of L4-5 was performed endplates corrected to subcortical and bone and the 9 x 26 mm Spira cage filled with os design bone graft tapped in position. The rods were then locked in final position bilaterally. The transverse processes of L4-L5 and the sacral ala burred to subcortical bleeding bone. Infuse collagen sponge combined with Koros and local autograft placed in the posterior gutters. Versa wrap placed over the exposed dura. 15 round ANIL drain inserted. The incision was then closed with 1 Vicryl the fascia 2-0 Vicryl subcutaneously and 4 Monocryl for final skin closure. Please note spinal cord monitoring was utilized at the procedure no changes noted. Jennifer Robledo was present at the entire procedure and brought the patient positioning complex portion of the surgery and final skin closure. Im ordering 20 grams of Triple [place] Collagen Powder ([employer] [id number]) to treat an incision wound that was caused by a spine procedure. The incision is approximately 2 cm(W) x 4 cm(L) into the joint (D) in size and is a full thickness wound. Triple [place] collagen comes in 1 gram packets so 20 packets were ordered. Given the size of the wound, with light to moderate exudate I chose to order a 20 day supply. The patient will be provided instructions for proper application of the collagen wound kit. The patient will be asked to apply the collagen powder daily and then cover it with sterile dressings dispensed. Collagen was selected as I expect the collagen to attract monocytes and fibroblasts, act as a sacrificial substrate for MMPs, and ultimately proved a matrix for tissue and vessel growth. The collagen will act as a primary dressing in this scenario. It is medically necessary for proper healing of t hese wounds to improve bioavailability and contact with each wound surface, this is also to help prevent infection of wounds and promote healing ultimately leading to a better healing outcome and limit the risk of infection. I attest to the content of the Intraoperative Record and any orders documented therein. Any exceptions are noted below.
[2024-05-26] MEDS: fentaNYL citrate PF 100 MCG/2 ML VIAL IV PRN (11:46)
--- NOTE | 2024-05-26 11:54 | Fluoroscopy Report ---
FL lumbar spine 2-3V CLINICAL HISTORY: L4-S1 DECOMP/FUSION COMPARISON STUDY: None. FLUOROSCOPY TIME: 26.4 seconds. Ka,r: 19.37 mGy FLUOROSCOPIC IMAGES: 2 FINDINGS: Fluoroscopy was provided during L4-L5 discectomy with interbody spacer placement. Posterior decompression is noted with bilateral pedicle screw fusion from L4 through S1. Hardware is intact. IMPRESSION: Fluoroscopy provided during L4-L5 discectomy and L4-S1 posterior decompression and fusio n. ACT 112: Negative or not required by law. Electronically signed by: Abelino Sherman M.D. 05/26/2024 11:53 AM
[2024-05-26] MEDS ORDERED: DO NOT ADMINISTER FLU VACCINE PRN (12:47)
[2024-05-26] MEDS ORDERED: ALUMINUM/MAGNESIUM SUSP 30 ML UDC PO PRN (12:47)
[2024-05-26] MEDS ORDERED: FAMOTIDINE 20 MG TAB PO PRN (12:47)
[2024-05-26] MEDS ORDERED: hydrOXYzine HCl 25 MG TAB PO PRN (12:47)
[2024-05-26] MEDS ORDERED: LORazepam 2 MG/1 ML VIAL IV PRN (12:47)
[2024-05-26] MEDS ORDERED: ACETAMINOPHEN 1,000 MG/100 ML VIAL IV PRN (12:47)
[2024-05-26] MEDS ORDERED: DO NOT ADMINISTER PNEUMOCOCCAL VACCINE PRN (12:47)
[2024-05-26] MEDS ORDERED: PROMETHAZINE 12.5 MG/50.5 ML BAG IV PRN (12:47)
[2024-05-26] MEDS ORDERED: METOCLOPRAMIDE HCL INJ 5 MG/ML 2 ML VIAL IV PRN (12:47)
[2024-05-26] MEDS ORDERED: ACETAMINOPHEN 500 MG TAB PO PRN (12:47)
[2024-05-26] MEDS ORDERED: SOD PHOSPHATE/SOD BIPHOSPHATE ENEMA 132 ML BTL PR PRN (12:47)
[2024-05-26] MEDS ORDERED: HYDROmorphone INJ 1 MG/ML SYRINGE IV PRN (12:47)
[2024-05-26] MEDS ORDERED: LORazepam 0.5 MG TAB PO PRN (12:47)
[2024-05-26] MEDS ORDERED: MAGNESIUM HYDROXIDE SUSP 30 ML UDC PO PRN (12:47)
[2024-05-26] MEDS ORDERED: HYDROmorphone INJ 0.5 MG/0.5 ML SYR IV PRN (12:47)
[2024-05-26] MEDS ORDERED: NALOXONE HCL 0.4 MG/1 ML VIAL/CARP IV PRN (12:47)
[2024-05-26] MEDS ORDERED: diphenhydrAMINE Capsule 25 MG CAP PO PRN (12:47)
--- NOTE | 2024-05-26 13:17 | Anesthesiology Progress Note ---
Date of Service May 26, 2024 Anesthesia Post Procedure Vital Signs Vital Signs: Temp Pulse Pulse Resp BP Pulse Ox O2 Del Method 05/26/24 12:20 36.6 C 67 16 112/82 97 Nasal Cannula 05/26/24 12:10 68 17 114/66 97 Nasal Cannula 05/26/24 12:00 64 12 118/65 98 Oxymask 05/26/24 11:50 65 12 125/65 100 Oxymask 05/26/24 11:41 36.0 C L 68 18 128/70 97 Oxymask 05/26/24 07:43 37 C 70 20 139/73 95 Room Air O2 Flow Rate 05/26/24 12:20 2 05/26/24 12:10 2 05/26/24 12:00 4 05/26/24 11:50 4 05/26/24 11:41 4 05/26/24 07:43 Pain Intensity Lower Back: Pain Intensity: 4 Back: Pain Intensity: 4 Transfer of Care Handoff Completed per policy Notes Mental Status: alert / awake / arousable and participated in evaluation Patient Amnestic to Procedure: Yes Nausea / Vomiting: adequately controlled Pain: adequately controlled Airway Patency, RR, SpO2: stable & adequate BP & HR: stable & adequate Hydration State: stable & adequate Anesthetic Complications: no major complications apparent
--- NOTE | 2024-05-26 13:44 | Hospitalist Consultation ---
Date of Consultation May 26, 2024 History of Present Illness Attending Physician: Mikey Sanchez DO Allergies Allergy/AdvReac Type Severity Reaction Status Date / Time Sulfa (Sulfonamide Allergy Unknown N/V Verified 05/26/24 07:40 Antibiotics) Home Medications Medication Instructions Recorded Confirmed Type ascorbic acid (vitamin C) 100 mg 100 mg PO DAILY 03/10/24 05/26/24 History tablet (Vitamin C) cetirizine 10 mg tablet (Zyrtec) 10 mg PO QAM 03/10/24 05/26/24 History cholestyramine (with sugar) 4 gram 4 g PO QDD 03/10/24 05/26/24 History oral powder glucosamine sulfate 500 mg tablet 500 mg PO DAILY 03/10/24 05/26/24 History (Glucosamine) ibuprofen 400 mg tablet 400 mg PO BID 03/10/24 05/26/24 History lisinopril 10 mg tablet 10 mg PO QAM 03/10/24 05/26/24 History multivitamin 1 tab PO QAM 03/10/24 05/26/24 History tramadol 50 mg tablet 50 mg PO BID 03/10/24 05/26/24 History cholecalciferol (vitamin D3) 125 125 mcg PO QAM 04/25/24 05/26/24 History mcg (5,000 unit) tablet (Vitamin D3) diclofenac sodium 1 % topical gel 2 g topical DAILY PRN prn 04/25/24 05/26/24 History vitamin E (dl, acetate) 180 mg 180 mg PO QAM 04/25/24 05/26/24 History (400 unit) capsule Patient History Medical History Arthritis Bunion Left great toe; to have repaired prior to back surgery (05/02/24) at [facility] CKD (chronic kidney disease) Environmental and seasonal allergies History of COVID-19 (2022) Symptoms resolved HTN (hypertension) Hyperlipidemia IBS (irritable bowel syndrome) Spinal stenosis Surgical History History of cataract surgery B/L History of lumbar surgery History of open reduction and internal fixation (ORIF) procedure Femur right History of right hip replacement Hx of section Hx of colonoscopy Hx of tonsillectomy Family History Other No family history of adverse response to anesthesia Social History Smoking Status: Former smoker Tobacco Type: Cigarettes Smoking End Date: Quit 2015; Second Hand Exposure: No; Do You Dip or Chew Tobacco: No; Tobacco Cessation Education Requested by Patient: No Hx Alcohol Use: No Hx Substance Use: No Preferred Language: Indonesian Communication Ability: Effective Cellular Tower Climber Required: No Beliefs That Will Affect Care: None Current Living Situation: Spouse Other Information That Helps Us Care for You: No Feels Safe at Home: Yes Safety Concerns: Feels Safe At This Time Assistive Devices: Cane and Glasses Assistive Devices Comment: can prn Results & Data Results & Data Vital Signs (Past 12 Hours) Vital Signs Temp Pulse Pulse Resp BP Pulse Ox O2 Del Method 05/26/24 13:00 36.5 C 68 16 117/68 94 Room Air 05/26/24 12:30 36.6 C 69 18 112/69 93 Room Air 05/26/24 12:20 36.6 C 67 16 112/82 97 Nasal Cannula 05/26/24 12:10 68 17 114/66 97 Nasal Cannula 05/26/24 12:00 64 12 118/65 98 Oxymask 05/26/24 11:50 65 12 125/65 100 Oxymask 05/26/24 11:41 36.0 C L 68 18 128/70 97 Oxymask 05/26/24 07:43 37 C 70 20 139/73 95 Room Air O2 Flow Rate 05/26/24 13:00 05/26/24 12:30 05/26/24 12:20 2 05/26/24 12:10 2 05/26/24 12:00 4 05/26/24 11:50 4 05/26/24 11:41 4 05/26/24 07:43
--- NOTE | 2024-05-26 13:50 | Consultation ---
Date of Consultation May 26, 2024 Assessment & Plan (1) Lumbosacral spondylosis with radiculopathy: Lumbar spondylosis with radiculopathy Lumbar spondylolisthesis L4-5 Lumbar spinal stenosis with neurogenic claudication. --S/P lumbar decompression, fusion surgery by Dr. Sanchez on 05/26/2024 Pain is controlled Monitor for post OP anemia Bowel regimen to prevent constipation Activity & DVT Px as per Primary team Incentive spirometry Given history of irritable bowel syndrome, cautious use of stool softeners Expect leukocytosis given Decadron use for surgery Hypertension Continue lisinopril Monitor blood pressure closely Vitamin D deficiency Continue vitamin D supplements Irritable bowel syndrome Continue cholestyramine CKD stage III Monitor renal function Continue nephrotoxic agents as able Seasonal allergies Continue Zyrtec DVT Px: As per primary team CODE STATUS Full code Disposition PT OT as able History of Present Illness Requesting Physician: Dr. Sanchez Reason for Consultation: Postoperative medical management Attending Physician: Mikey Sanchez, DO History of Present Illness Patient is a 79-year-old female with history of hypertension, vitamin D deficiency, irritable bowel syndrome, spinal stenosis, arthritis, CKD stage III, seasonal allergies and other medical problems was consulted for postop medical management. Patient underwent lumbar decompression, fusion surgery by Dr. Sanchez for lumbar spondylosis with radiculopathy, lumbar spondylolisthesis L4-5, lumbar spinal stenosis with neurogenic claudication. Postoperatively pain is controlled at surgical site. She does admit to have some radiation down her right lower extremity. Numbness and tingling of lower extremities improved postsurgery. Otherwise no other complaints currently. She denies any chest pain, dyspnea, nausea, vomiting, abdominal pain, dizziness. No flatus or bowel movement yet. Allergies Allergy/AdvReac Type Severity Reaction Status Date / Time Sulfa (Sulfonamide Allergy Unknown N/V Verified 05/26/24 07:40 Antibiotics) Home Medications Medication Instructions Recorded Confirmed Type ascorbic acid (vitamin C) 100 mg 100 mg PO DAILY 03/10/24 05/26/24 History tablet (Vitamin C) cetirizine 10 mg tablet (Zyrtec) 10 mg PO QAM 03/10/24 05/26/24 History cholestyramine (with sugar) 4 gram 4 g PO QDD 03/10/24 05/26/24 History oral powder glucosamine sulfate 500 mg tablet 500 mg PO DAILY 03/10/24 05/26/24 History (Glucosamine) ibuprofen 400 mg tablet 400 mg PO BID 03/10/24 05/26/24 History lisinopril 10 mg tablet 10 mg PO QAM 03/10/24 05/26/24 History multivitamin 1 tab PO QAM 03/10/24 05/26/24 History tramadol 50 mg tablet 50 mg PO BID 03/10/24 05/26/24 History cholecalciferol (vitamin D3) 125 125 mcg PO QAM 04/25/24 05/26/24 History mcg (5,000 unit) tablet (Vitamin D3) diclofenac sodium 1 % topical gel 2 g topical DAILY PRN prn 04/25/24 05/26/24 History vitamin E (dl, acetate) 180 mg 180 mg PO QAM 04/25/24 05/26/24 History (400 unit) capsule oxycodone 5 mg tablet 5 mg PO Q6H PRN pain #30 tabs 05/26/24 Rx tramadol 50 mg tablet 50 mg PO Q6H PRN pain, moderate 05/26/24 Rx #30 tabs Patient History Medical History Bunion Left great toe; to have repaired prior to back surgery (05/02/24) at [facility] Arthritis IBS (irritable bowel syndrome) Hyperlipidemia History of COVID-19 (2022) Symptoms resolved CKD (chronic kidney disease) Spinal stenosis HTN (hypertension) Environmental and seasonal allergies Surgical History History of cataract surgery B/L Hx of colonoscopy History of right hip replacement History of open reduction and internal fixation (ORIF) procedure Femur right History of lumbar surgery Hx of section Hx of tonsillectomy Family History Other No family history of adverse response to anesthesia Social History Smoking Status: Former smoker Tobacco Type: Cigarettes Smoking End Date: Quit 2015; Second Hand Exposure: No; Do You Dip or Chew Tobacco: No; Tobacco Cessation Education Requested by Patient: No Hx Alcohol Use: No Hx Substance Use: No Preferred Language: [place] Communication Ability: Effective Wireless Retail Manager Required: No Beliefs That Will Affect Care: None Current Living Situation: Spouse Other Information That Helps Us Care for You: No Feels Safe at Home: Yes Safety Concerns: Feels Safe At This Time Assistive Devices: Cane and Glasses Assistive Devices Comment: can prn Review of Systems Review of Systems: All systems reviewed & are unremarkable except as noted in Subjective Physical Exam Physical Exam: Physical Exam: Vitals signs as noted above General Appearance: Obese, no apparent distress Head: normocephalic, Atraumatic Eyes: normal inspection, EOMI Neck: supple, Trachea midline Respiratory/Chest: Normal breath sounds, CTA, No accessory muscle use Cardiovascular: S1, S2, No murmur Abdomen/GI:Soft, Non tender, Bowel sounds present Back: Surgical site in dressing, drain Extremities/Musculoskeletal:normal inspection, no edema Neurologic/Psych:AAOX3, grossly no focal neurological deficits Skin: normal color, warm Results & Data Vital Signs (Past 12 Hours) Vital Signs Temp Pulse Pulse Resp BP Pulse Ox O2 Del Method 05/26/24 13:00 36.5 C 68 16 117/68 94 Room Air 05/26/24 12:30 36.6 C 69 18 112/69 93 Room Air 05/26/24 12:20 36.6 C 67 16 112/82 97 Nasal Cannula 05/26/24 12:10 68 17 114/66 97 Nasal Cannula 05/26/24 12:00 64 12 118/65 98 Oxymask 05/26/24 11:50 65 12 125/65 100 Oxymask 05/26/24 11:41 36.0 C L 68 18 128/70 97 Oxymask 05/26/24 07:43 37 C 70 20 139/73 95 Room Air O2 Flow Rate 05/26/24 13:00 05/26/24 12:30 05/26/24 12:20 2 05/26/24 12:10 2 05/26/24 12:00 4 05/26/24 11:50 4 05/26/24 11:41 4 05/26/24 07:43 Diagnostic Findings -Lumbar Spinal X ray:Fluoroscopy provided during L4-L5 discectomy and L4-S1 posterior decompression and fusion.
[2024-05-26] MEDS: CHOLESTYRAMINE LIGHT 4 GM PKT PO SCH (17:09)
[2024-05-26] MEDS: ceFAZolin 1000MG 1,000 MG/7.5 ML SYR IV SCH (17:20)
[2024-05-26] MEDS: traMADol HCL 50 MG TABLET PO PRN (18:42)
[2024-05-26] MEDS: DOCUSATE SODIUM/SENNA 50/8.6MG TAB PO SCH (19:31)
[2024-05-26] MEDS: oxyCODONE HCL IR 5 MG TAB (IMMEDIATE RELEASE) PO PRN (23:24)
[2024-05-27] MEDS: POLYETHYLENE (MIRALAX) 17 GM PACK PO SCH ×2 (06:17→08:55)
[2024-05-27 07:54] LABS: Basophils # (auto) 0.03 K/uL (0.00-0.20); Basophils % (auto) 0.2 %; Eosinophils # (auto) 0.01 K/uL (0.00-0.50); Eosinophils % (auto) 0.1 %; Hematocrit (blood only) 39.6 % (37.0-47.0); Hemoglobin 12.5 g/dl (12.0-16.0); Immature Granulocytes # (auto) 0.05 K/uL (0.01-0.20); Immature Granulocytes % (auto) 0.4 %; Lymphocytes # (auto) 2.36 K/uL (1.20-3.40); Lymphocytes % (auto) 19.3 %; Mean Corpuscular Hemoglobin 30.9 pg (25.0-34.0); Mean Corpuscular Hgb Conc 31.6 g/dL (32.0-36.0); Mean Platelet Volume 9.6 fL (9.4-12.4); Monocytes # (auto) 1.19 K/uL (0.11-0.59); Monocytes % (auto) 9.7 %; Neutrophils # (auto) 8.58 K/uL (1.40-6.50); Neutrophils % (auto) 70.3 %; Platelet Count 251 K/uL (130-400); RDW Coefficient of Variation 12.8 % (11.5-14.5); Red Blood Count 4.04 M/uL (4.20-5.40); White Blood Count 12.22 K/ul (4.8-10.8)
[2024-05-27 08:11] LABS: BUN Creatinine Ratio 27.2 (10-20); Calcium 8.8 mg/dl (8.6-10.3); Creatinine Clr Calc Pharmacy 38.4 ml/min; Magnesium 1.9 mg/dl (1.7-2.4); Potassium 5.2 mmol/L (3.5-5.1)
[2024-05-27] MEDS: dexAMETHasone 6 MG in SYRINGE 0 ML IV SCH (08:28)
[2024-05-27] MEDS: lisinopril 10 MG TAB PO SCH (08:38)
[2024-05-27] MEDS: MULTIVITAMIN TAB PO SCH (08:54)
[2024-05-27] MEDS: CETIRIZINE HCL 10 MG TABLET PO SCH (08:55)
[2024-05-27] MEDS: CHOLECALCIFEROL 125 MCG (5,000 UNITS) TAB PO SCH (08:55)
[2024-05-27] MEDS ORDERED: NON-FORMULARY MEDICATION (Ascorbic Acid (Vitamin C) [Vitamin C] 100 mg Tablet) PO SCH (09:00)
--- NOTE | 2024-05-27 09:30 | Orthopedic Progress Note ---
Date of Service May 27, 2024 Assessment & Plan (1) Lumbosacral spondylosis with radiculopathy: Plan: At this time initiate physical therapy. Monitor ANIL operatively discharge home in the next few days. Admission and Anticipated Discharge Date Admission Date: May 26, 2024 Subjective Back pain is controlled leg symptoms markedly improved Physical Exam Physical Exam: Patient is in the chair at the bedside. She is comfortable. Distracted testing. Results & Data Vital Signs (Past 12 Hours) Vital Signs Temp Pulse Pulse Resp BP Pulse Ox O2 Del Method 05/27/24 07:52 36.6 C 66 16 105/65 96 Room Air 05/27/24 03:00 36.7 C 67 18 101/66 93 Room Air 05/26/24 23:00 37.1 C 76 18 118/77 94 Room Air
--- NOTE | 2024-05-27 10:31 | Hospitalist Progress Note ---
Date of Service May 27, 2024 Assessment & Plan (1) Lumbosacral spondylosis with radiculopathy: Plan Lumbar spondylosis with radiculopathy Lumbar spondylolisthesis L4-5 Lumbar spinal stenosis with neurogenic claudication. --S/P lumbar decompression, fusion surgery by Dr. Sanchez on 05/26/2024 Pain is controlled Monitor for post OP anemia, hgb stable Will reduce bowel regimen to miralax BID and Senna S to 1 tab HS due to pt hx of fecal incontinence, we can adjust as needed She does take chronic narcotics and does not have constipation with tramadol, will monitor Hold Questran while on bowel meds Activity & DVT Px as per Primary team Incentive spirometry Hypertension Hold lisinopril today due to low normal BP monitor daily and resume as able Hyperkalemia K 5.2, hold lisinopril for now and low K diet repeat bmp @ 1700 Leukocytosis reactive 2/2 to surgery and steroids monitor, repeat cbc in a.m. Vitamin D deficiency Continue vitamin D supplements Irritable bowel syndrome will hold questran for now as she does not report diarrhea just fecal incon tinence at baseline questran may worsen constipation with narcotics resume as able CKD stage III Monitor renal function Continue nephrotoxic agents as able Cr stable at 1.1 Seasonal allergies Continue Zyrtec DVT Px: As per primary team CODE STATUS Full code Disposition PT OT as able Thank you for this consultation. We will follow the patient with you during their hospital stay. You can reach a member of the [facility] Hospitalist Team 01/01 via hospitalist role on tiger text. I spent a total of 41 minutes reviewing notes, outpatient records, labs, medication, coordinating, documenting and providing care for this patient excluding time spent in the performance of separately billed services. Admission and Anticipated Discharge Date Admission Date: May 26, 2024 Subjective Pt endorses no complaints. She feels well. She reports hx of fecal incontinence for the past 2 years. This has been ongoing and a huge limiting factor to her life. She feels embarrassed by it. She is very hesitant to take the stool softeners as she is afraid she will soil herself because she has no control. She denies f/c/s, chest pain, sob, n/v/d. She denies any saddle anesthesia. Review of Systems Review of Systems: All systems reviewed & are unremarkable except as noted in HPI & below Physical Exam Physical Exam: Gen: WD/WN, F, NAD, A&O x3 HEENT: Normocephalic, atraumatic, conjunctivae moist, sclerae anicteric, mucous membranes moist. Lung: Clear to Auscultation bilaterally, no wheezes/rales/rhonchi Heart: Regular rate, regular rhythm, no murmurs, rubs, or gallops Abdomen: Soft, NT, ND +BS x 4 Extremities: No edema, ANIL drain in place, serosang drainage Skin: Warm, no rash, negative turgor. : + xiong draining yellow urine Results & Data Results & Data Vital Signs (Past 12 Hours) Vital Signs Temp Pulse Pulse Resp BP Pulse Ox O2 Del Method 05/27/24 07:52 36.6 C 66 16 105/65 96 Room Air 05/27/24 03:00 36.7 C 67 18 101/66 93 Room Air 05/26/24 23:00 37.1 C 76 18 118/77 94 Room Air Laboratory Results I have independently reviewed and interpreted patient's CBC, BMP Short CBC 05/27/24 Range/Units 07:04 WBC 12.22 H (4.8-10.8) K/ul Hgb 12.5 (12.0-16.0) g/dl Hct 39.6 (37.0-47.0) % Plt Count 251 (130-400) K/uL BMP 05/27/24 07:04 Sodium 136 Potassium 5.2 H Chloride 102 Carbon Dioxide 27 BUN 31 H Creatinine 1.14 Glucose 121 H Calcium 8.8 Medications Administered Current Inpatient Medications Acetaminophen (Acetaminophen 500 Mg Tab) 1,000 mg PO Q8H PRN PRN Reason: MILD Pain Scale 1,2,3 & Pre PT Stop: 06/25/24 12:46 Al Hydrox/Mg Hydrox/Simethicone (Aluminum/Magnesium Susp 30 Ml Udc) 30 ml PO Q6H PRN PRN Reason: Dyspepsia Stop: 06/25/24 12:46 Bisacodyl (Bisacodyl 10 Mg Supp) 10 mg DC DAILY PRN PRN Reason: Constipation Stop: 06/25/24 12:46 Cetirizine HCl (Cetirizine Hcl 10 Mg Tablet) 10 mg PO QAM ESTEFANI Stop: 06/26/24 08:59 Last Admin: 05/27/24 08:55 Dose: 10 mg Cholestyramine Resin (Cholestyramine Light 4 Gm Pkt) 4 gm PO QDD [facility] Stop: 06/25/24 16:29 Last Admin: 05/26/24 17:09 Dose: 4 gm Diphenhydramine HCl (Diphenhydramine Capsule 25 Mg Cap) 25 mg PO Q6H PRN PRN Reason: Allergic Rhinitis/Insomnia Stop: 06/25/24 12:46 Famotidine (Famotidine 20 Mg Tab) 20 mg PO Q12H PRN PRN Reason: Dyspepsia Stop: 06/25/24 12:46 Hydromorphone HCl (Hydromorphone Inj 0.5 Mg/0.5 Ml Syr) 0.5 mg IV Q3H PRN PRN Reason: MODERATE Pain (Scale 4,5,6) & Pre PT Stop: 06/09/24 12:46 Hydromorphone HCl (Hydromorphone Inj 1 Mg/Ml Syringe) 1 mg IV Q3H PRN PRN Reason: SEVERE Pain (Scale 7,8,9,10) Stop: 06/09/24 12:46 Hydroxyzine HCl (Hydroxyzine Hcl 25 Mg Tab) 25 mg PO Q8H PRN PRN Reason: Anxiety Stop: 06/25/24 12:46 Acetaminophen (Ofirmev) 1,000 mg in 100 mls @ 400 mls/hr IV Q8H PRN PRN Reason: Pain Rating 1-3 & Pre PT Stop: 05/27/24 12:48 Promethazine HCl (Phenergan) 12.5 mg in 50.5 mls @ 202 mls/hr IV Q6H PRN PRN Reason: Nausea And Vomiting Stop: 06/25/24 12:46 Dexamethasone 6 mg/ Syringe 1.5 mls @ 1 mls/min IV DAILY [facility] Stop: 05/29/24 09:02 Last Admin: 05/27/24 08:28 Dose: 1 mls/min Influenza Virus Vaccine Quadrival (Do Not Administer Flu Vaccine) 1 each N/A PRN PRN PRN Reason: Notification Stop: 06/25/24 12:46 Lisinopril (Lisinopril 10 Mg Tab) 10 mg PO QAM [facility] Stop: 06/26/24 08:59 Last Admin: 12/17/24 08:38 Dose: Not Given Lorazepam (Lorazepam 0.5 Mg Tab) 0.5 mg PO Q8H PRN PRN Reason: Sedation/Anxiety Stop: 06/25/24 12:46 Lorazepam (Lorazepam 2 Mg/1 Ml Vial) 0.5 mg IV Q8H PRN PRN Reason: Sedation/Anxiety Stop: 06/25/24 12:46 Magnesium Hydroxide (Magnesium Hydroxide Susp 30 Ml Udc) 30 ml PO Q24H PRN PRN Reason: Constipation Stop: 06/25/24 12:46 Metoclopramide HCl (Metoclopramide Hcl Inj 5 Mg/Ml 2 Ml Vial) 10 mg IV Q6H PRN PRN Reason: Nausea &/or Vomiting Stop: 06/25/24 12:46 Multivitamins (Multivitamin Tab) 1 tab PO QAM ESTEFANI Stop: 06/26/24 08:59 Last Admin: 05/27/24 08:54 Dose: 1 tab Naloxone HCl (Naloxone Hcl 0.4 Mg/1 Ml Vial/Carp) 0.1 mg IV Q5M PRN PRN Reason: Oversedation/Resp depression Stop: 06/25/24 12:46 Ondansetron HCl (Ondansetron Inj 2 Mg/Ml 2 Ml Vial) 4 mg IV Q6H PRN PRN Reason: Nausea &/or Vomiting Stop: 06/25/24 12:46 Ondansetron HCl (Ondansetron 4 Mg Od Tab) 4 mg PO Q6H PRN PRN Reason: Nausea Stop: 06/25/24 12:46 Oxycodone HCl (Oxycodone Hcl Ir 5 Mg Tab (Immediate Release)) 5 - 10 mg PO Q4H PRN PRN Reason: Pain & Pre PT Stop: 06/09/24 12:46 Last Admin: 05/26/24 23:24 Dose: 5 mg Pneumococcal Polyvalent Vaccine (Do Not Administer Pneumococcal Vaccine) 1 each N/A PRN PRN PRN Reason: Notification Stop: 06/25/24 12:46 Polyethylene Glycol (Polyethylene (Miralax) 17 Gm Pack) 17 gm PO Q12 ESTEFANI Stop: 06/26/24 08:59 Last Admin: 05/27/24 08:55 Dose: Not Given Senna/Docusate Sodium (Docusate Sodium/Senna 50/8.6mg Tab) 1 tab PO HS [facility] Stop: 06/26/24 20:59 Sodium Biphosphate/Sodium Phosphate (Sod Phosphate/Sod Biphosphate Enema 132 Ml Btl) 132 ml DC ONE PRN PRN Reason: Constipation Stop: 06/25/24 12:46 Tramadol HCl (Tramadol Hcl 50 Mg Tablet) 50 - 100 mg PO Q4H PRN PRN Reason: Moderate-Severe pain & Pre PT Stop: 06/25/24 12:46 Last Admin: 05/26/24 18:42 Dose: 100 mg Vitamin D (Cholecalciferol 125 Mcg (5,000 Units) Tab) [facility] [place] Stop: 06/26/24 08:59 Last Admin: 05/27/24 08:55 Dose: 125 mcg
[2024-05-27 17:21] LABS: BUN Creatinine Ratio 26.3 (10-20); Calcium 8.8 mg/dl (8.6-10.3); Creatinine Clr Calc Pharmacy 32.9 ml/min
[2024-05-27] MEDS: DOCUSATE SODIUM/SENNA 50/8.6MG TAB PO SCH (21:43)
[2024-05-28 07:13] LABS: Hematocrit (blood only) 35.1 % (37.0-47.0); Hemoglobin 11.3 g/dl (12.0-16.0); Mean Corpuscular Hemoglobin 31.7 pg (25.0-34.0); Mean Corpuscular Hgb Conc 32.2 g/dL (32.0-36.0); Mean Corpuscular Volume 98.3 fL (80.0-100.0); Mean Platelet Volume 9.6 fL (9.4-12.4); Platelet Count 213 K/uL (130-400); RDW Coefficient of Variation 12.8 % (11.5-14.5); Red Blood Count 3.57 M/uL (4.20-5.40); White Blood Count 12.27 K/ul (4.8-10.8)
[2024-05-28 07:22] LABS: BUN Creatinine Ratio 28.9 (10-20); Calcium 8.6 mg/dl (8.6-10.3); Creatinine Clr Calc Pharmacy 38.4 ml/min; Potassium 4.2 mmol/L (3.5-5.1)
--- NOTE | 2024-05-28 11:00 | Orthopedic Progress Note ---
Date of Service May 28, 2024 Assessment & Plan (1) Lumbosacral spondylosis with radiculopathy: Plan: At this point we will continue physical therapy. Monitor ANIL output. Anticipate discharge home tomorrow. Admission and Anticipated Discharge Date Admission Date: May 26, 2024 Subjective Back pain is controlled leg symptoms markedly improved Physical Exam Physical Exam: Patient is up and ambulating with her walker. She is comfortable. Good strength testing. Results & Data Vital Signs (Past 12 Hours) Vital Signs Temp Pulse Resp BP Pulse Ox O2 Del Method 05/28/24 08:20 36.3 C L 73 17 103/69 98 Room Air
--- NOTE | 2024-05-28 11:33 | Hospitalist Progress Note ---
Date of Service May 28, 2024 Assessment & Plan (1) Lumbosacral spondylosis with radiculopathy: Plan Assessment and plan: Lumbar spondylosis with radiculopathy Lumbar spondylolisthesis L4-5 Lumbar spinal stenosis with neurogenic claudication S/p lumbar decompression 05/26 Activity and DVT prophylaxis as per primary team Continue to monitor ANIL output- anticipate ADC tomorrow Hx HTN: Continue to hold lisinopril for now, can consider continuing on DC Hyperkalemia resolved Leukocytosis -reactive 2/2 to surgery and steroids -monitor, repeat cbc in a.m. Irritable bowel syndrome -Will hold questran for now as she does not report diarrhea just fecal incontinence at baseline -Questran may worsen constipation with narcotics CKD stage III Creatinine stable and at baseline Plan for ADC in the next 24 hours home if cleared by primary team. No objection to discharge from our standpoint. We will follow with you. DVT Px: As per primary team Full code I spent a total of 30 minutes reviewing notes, outpatient records, labs, medication, coordinating, documenting and providing care for this patient excluding time spent in the performance of separately billed services. Admission and Anticipated Discharge Date Admission Date: May 26, 2024 Supervising Physician Co-Signing Physician Notes Pt seen and examined by me, care coordinated w/ T. ALICE Arnett, pls refer to her note above for further detail. Pt sitting in chair, in NAD. Feeling well. OT present at the bedside. Lungs CTAB, heart sound regular. Pt is ambulating. No dizziness or lightheadedness on ambulation. Will cont. to hold lisinopril for now, monitor BP. Monitor CBC. MD Keyanna Subjective Patient seen and examined. No apparent distress. Reports her pain is controlled. Denies any issues overnight. Review of Systems Review of Systems: All systems reviewed & are unremarkable except as noted in HPI & below Physical Exam Physical Exam: Gen: WD/WN, F, NAD, A&O x3 HEENT: Normocephalic, atraumatic, conjunctivae moist, sclerae anicteric, mucous membranes moist. Lung: Clear to Auscultation bilaterally, no wheezes/rales/rhonchi Heart: Regular rate, regular rhythm, no murmurs, rubs, or gallops Abdomen: Soft, NT, ND +BS x 4 Extremities: No edema, ANIL drain in place, serosang drainage Skin: Warm, no rash, negative turgor. : + xiong draining yellow urine Results & Data Results & Data Vital Signs (Past 12 Hours) Vital Signs Temp Pulse Resp BP Pulse Ox O2 Del Method 05/28/24 08:20 36.3 C L 73 17 103/69 98 Room Air Diagnostic Findings Laboratory Results WBC 12.27 K/ul (4.8-10.8) H 05/28/24 06:36 RBC 3.57 M/uL (4.20-5.40) L 05/28/24 06:36 Hgb 11.3 g/dl (12.0-16.0) L 05/28/24 06:36 Hct 35.1 % (37.0-47.0) L 05/28/24 06:36 MCV 98.3 fL (80.0-100.0) 05/28/24 06:36 MCH 31.7 pg (25.0-34.0) 05/28/24 06:36 MCHC 32.2 g/dL (32.0-36.0) 05/28/24 06:36 RDW Std Deviation 46.0 fL (36.4-46.3) 05/28/24 06:36 RDW Coeff of Eddie 12.8 % (11.5-14.5) 05/28/24 06:36 Plt Count 213 K/uL (130-400) 05/28/24 06:36 MPV 9.6 fL (9.4-12.4) 05/28/24 06:36 Immature Gran % (Auto) 0.4 % 05/27/24 07:04 Neut % (Auto) 70.3 % 05/27/24 07:04 Lymph % (Auto) 19.3 % 05/27/24 07:04 Linn % (Auto) 9.7 % 05/27/24 07:04 Eos % (Auto) 0.1 % 05/27/24 07:04 Baso % (Auto) 0.2 % 05/27/24 07:04 Neut # (Auto) 8.58 K/uL (1.40-6.50) H 05/27/24 07:04 Lymph # (Auto) 2.36 K/uL (1.20-3.40) 05/27/24 07:04 Linn # (Auto) 1.19 K/uL (0.11-0.59) H 05/27/24 07:04 Eos # (Auto) 0.01 K/uL (0.00-0.50) 05/27/24 07:04 Baso # (Auto) 0.03 K/uL (0.00-0.20) 05/27/24 07:04 Immature Gran # (Auto) 0.05 K/uL (0.01-0.20) 05/27/24 07:04 Sodium 137 mmol/L (136-145) 05/28/24 06:36 Potassium 4.2 mmol/L (3.5-5.1) 05/28/24 06:36 Chloride 105 mmol/L (98-107) 05/28/24 06:36 Carbon Dioxide 26 mmol/L (21-32) 05/28/24 06:36 Anion Gap 6 (3-11) 05/28/24 06:36 BUN 33 mg/dl (6-23) H 05/28/24 06:36 Creatinine 1.14 mg/dl (0.6-1.2) 05/28/24 06:36 Est Cr Clr Drug Dosing 38.4 ml/min 05/28/24 06:36 eGFR 49.27 05/28/24 06:36 BUN/Creatinine Ratio 28.9 (10-20) H 05/28/24 06:36 Glucose 95 mg/dl (70-99(Fasting)) 05/28/24 06:36 Calcium 8.6 mg/dl (8.6-10.3) 05/28/24 06:36 Magnesium 1.9 mg/dl (1.7-2.4) 05/27/24 07:04 Blood Type O Positive 05/26/24 07:28 Antibody Screen NEGATIVE 05/26/24 07:28 Crossmatch See Detail 05/26/24 07:28 Impressions Lumbar Spine X-Ray 05/26/24 00:00 FL lumbar spine 2-3V CLINICAL HISTORY: L4-S1 DECOMP/FUSION COMPARISON STUDY: None. FLUOROSCOPY TIME: 26.4 seconds. Ka,r: 19.37 mGy FLUOROSCOPIC IMAGES: 2 FINDINGS: Fluoroscopy was provided during L4-L5 discectomy with interbody spacer placement. Posterior decompression is noted with bilateral pedicle screw fusion from L4 through S1. Hardware is intact. IMPRESSION: Fluoroscopy provided during L4-L5 discectomy and L4-S1 posterior decompression and fusion. ACT 112: Negative or not required by law. Electronically signed by: Abelion Sherman M.D. 05/26/2024 11:53 AM
[2024-05-29 06:35] LABS: Hematocrit (blood only) 34.5 % (37.0-47.0); Hemoglobin 11.3 g/dl (12.0-16.0); Mean Corpuscular Hgb Conc 32.8 g/dL (32.0-36.0); Mean Corpuscular Volume 97.7 fL (80.0-100.0); Mean Platelet Volume 9.7 fL (9.4-12.4); Platelet Count 220 K/uL (130-400); RDW Coefficient of Variation 12.9 % (11.5-14.5); RDW Standard Deviation 46.2 fL (36.4-46.3); Red Blood Count 3.53 M/uL (4.20-5.40); White Blood Count 12.11 K/ul (4.8-10.8)
[2024-05-29 07:04] LABS: BUN Creatinine Ratio 30.2 (10-20); Calcium 8.5 mg/dl (8.6-10.3); Creatinine Clr Calc Pharmacy 45.6 ml/min; Magnesium 2.1 mg/dl (1.7-2.4); Phosphorus 2.6 mg/dl (2.5-4.9); Potassium 4.2 mmol/L (3.5-5.1)
[2024-05-29] MEDS: ONDANSETRON 4 MG OD TAB PO PRN (08:16)
--- NOTE | 2024-05-29 08:51 | Orthopedic Progress Note ---
Date of Service May 29, 2024 Assessment & Plan (1) Lumbosacral spondylosis with radiculopathy: Plan: Don is postoperative day 3 status post L4-S1 decompression and fusion. She has a history of IBS. Starting with a suppository and a KUB this morning. Maintain ANIL drain. Continue with ambulation and limited narcotics. Anticipate discharge home tomorrow Admission and Anticipated Discharge Date Admission Date: May 26, 2024 Subjective Naomi is postoperative day 3 status post L4-S1 decompression and fusion. She is passing flatus but no bowel movement. She was nauseous this morning. Hospitalist team ordered a KUB which is still pending. Otherwise leg symptoms improved. Back pain is controlled. ANIL drain output last shift was 70 cc. H&H are 11.3 and 34.5 respectively. Yesterday in physical therapy [place] 750 feet Review of Systems Review of Systems: All systems reviewed & are unremarkable except as noted in HPI & below Physical Exam Physical Exam: She sitting in a chair dressed and in no acute distress Does not appear to be nauseous strength is intact bilateral lower extremities Lumbar dressing is clean dry intact with functioning ANIL drain Abdomen is soft and nontender Results & Data Vital Signs (Past 12 Hours) Vital Signs Temp Pulse Resp BP BP Pulse Ox O2 Del Method 05/29/24 07:51 36.5 C 68 16 147/86 H 98 Room Air 05/28/24 20:59 36.7 C 72 16 122/74 95 Room Air
--- NOTE | 2024-05-29 09:03 | XRay Report ---
KUB HISTORY: Acute generalized abdominal pain with constipation nausea, constipation COMPARISON: Fluoroscopic images of the spine 05/26/2024 FINDINGS: Nonobstructive bowel gas pattern. Moderate colonic fecal retention. No renal calculi. No u reteral calculi. No pneumoperitoneum or pneumatosis. No acute fracture identified. 3 level lower lumb ar spinal fusion with single level discectomy. Overlying surgical drainage catheter. Right hip arthro plasty. Severe left hip osteoarthritis. IMPRESSION: 1. Nonobstructive bowel gas pattern. 2. Moderate colonic fecal retention. ACT 112: Negative or not required by law. The above report was generated using voice recognition software. It may contain grammatical, syntax o r spelling errors. Electronically signed by: Daryl Ball M.D. 05/29/2024 9:02 AM
--- NOTE | 2024-05-29 09:14 | Hospitalist Progress Note ---
Date of Service May 29, 2024 Assessment & Plan (1) Lumbosacral spondylosis with radiculopathy: Plan Assessment and plan: Lumbar spondylosis with radiculopathy Lumbar spondylolisthesis L4-5 Lumbar spinal stenosis with neurogenic claudication S/p lumbar decompression 05/26 Activity and DVT prophylaxis as per primary team Continue to monitor ANIL outputanticipate ADC tomorrow Constipation Hx irritable bowel syndrome With nausea/vomiting x 1 on 05/29, KUB negative for obstruction but does show stool burden Will give Dulcolax suppository x 1, and mineral oil enema if no success, last BM 05/24 -Will hold questran for now as she does not report diarrhea just fecal incontinence at baseline Hx HTN: Continue to hold lisinopril for now, can consider continuing on DC Hyperkalemia resolved Leukocytosis -reactive 2/2 to surgery and steroids -monitor, repeat cbc in a.m. CKD stage III Creatinine stable and at baseline Plan for ADC in the next 24 hours home if symptoms improved/cleared by primary team. No objection to discharge from our standpoint. We will follow with you. The patient will need a continued bowel regimen after discharge to prevent further constipation. DVT Px: As per primary team Full code I spent a total of 30 minutes reviewing notes, outpatient records, labs, medication, coordinating, documenting and providing care for this patient excluding time spent in the performance of separately billed services. Admission and Anticipated Discharge Date Admission Date: May 26, 2024 Supervising Physician Co-Signing Physician Notes Pt seen and examined by me, care coordinated w/ T. ALICE Arnett, pls refer to her note above for further detail. Pt is laying in bed, uncomfortable, nausea and vomiting this AM, no BM but passing flatus. KUB obtained - no obstructive bowel pattern. Abdomen soft, + bowel sounds. Lungs CTAB, heart sound regular. Pt is ambulating. No dizziness or lightheadedness on ambulation. Will give suppository now, may need enema later if no BM. Will cont. to hold lisinopril for now, monitor BP. Monitor CBC. MD Keyanna Subjective Patient seen and examined. No apparent distress. Does report some nausea this morning and the patient has not had a bowel movement for about 4 days. She has been on consistent bowel regimen but has been taking narcotics. Denies any abdominal pain. No guarding on exam. Review of Systems Review of Systems: All systems reviewed & are unremarkable except as noted in HPI & below Physical Exam Physical Exam: Gen: WD/WN, F, NAD, A&O x3 HEENT: Normocephalic, atraumatic, conjunctivae moist, sclerae anicteric, mucous membranes moist. Lung: Clear to Auscultation bilaterally, no wheezes/rales/rhonchi Heart: Regular rate, regular rhythm, no murmurs, rubs, or gallops Abdomen: Soft, NT, ND +BS x 4 Extremities: No edema, ANIL drain in place, serosang drainage Skin: Warm, no rash, negative turgor. : + xiong draining yellow urine Results & Data Results & Data Vital Signs (Past 12 Hours) Vital Signs Temp Pulse Resp BP Pulse Ox O2 Del Method 05/29/24 07:51 36.5 C 68 16 147/86 H 98 Room Air Diagnostic Findings Laboratory Results WBC 12.11 K/ul (4.8-10.8) H 05/29/24 06:05 RBC 3.53 M/uL (4.20-5.40) L 05/29/24 06:05 Hgb 11.3 g/dl (12.0-16.0) L 05/29/24 06:05 Hct 34.5 % (37.0-47.0) L 05/29/24 06:05 MCV 97.7 fL (80.0-100.0) 05/29/24 06:05 MCH 32.0 pg (25.0-34.0) 05/29/24 06:05 MCHC 32.8 g/dL (32.0-36.0) 05/29/24 06:05 RDW Std Deviation 46.2 fL (36.4-46.3) 05/29/24 06:05 RDW Coeff of Eddie 12.9 % (11.5-14.5) 05/29/24 06:05 Plt Count 220 K/uL (130-400) 05/29/24 06:05 MPV 9.7 fL (9.4-12.4) 05/29/24 06:05 Immature Gran % (Auto) 0.4 % 05/27/24 07:04 Neut % (Auto) 70.3 % 05/27/24 07:04 Lymph % (Auto) 19.3 % 05/27/24 07:04 [place] % (Auto) 9.7 % 05/27/24 07:04 Eos % (Auto) 0.1 % 05/27/24 07:04 Baso % (Auto) 0.2 % 05/27/24 07:04 Neut # (Auto) 8.58 K/uL (1.40-6.50) H 05/27/24 07:04 Lymph # (Auto) 2.36 K/uL (1.20-3.40) 05/27/24 07:04 [place] # (Auto) 1.19 K/uL (0.11-0.59) H 05/27/24 07:04 Eos # (Auto) 0.01 K/uL (0.00-0.50) 05/27/24 07:04 Baso # (Auto) 0.03 K/uL (0.00-0.20) 05/27/24 07:04 Immature Gran # (Auto) 0.05 K/uL (0.01-0.20) 05/27/24 07:04 Sodium 139 mmol/L (136-145) 05/29/24 06:05 Potassium 4.2 mmol/L (3.5-5.1) 05/29/24 06:05 Chloride 107 mmol/L (98-107) 05/29/24 06:05 Carbon Dioxide 25 mmol/L (21-32) 05/29/24 06:05 Anion Gap 7 (3-11) 05/29/24 06:05 BUN 29 mg/dl (6-23) H 05/29/24 06:05 Creatinine 0.96 mg/dl (0.6-1.2) 05/29/24 06:05 Est Cr Clr Drug Dosing 45.6 ml/min 05/29/24 06:05 eGFR 60.56 05/29/24 06:05 BUN/Creatinine Ratio 30.2 (10-20) H 05/29/24 06:05 Glucose 93 mg/dl (70-99(Fasting)) 05/29/24 06:05 Calcium 8.5 mg/dl (8.6-10.3) L 05/29/24 06:05 Phosphorus 2.6 mg/dl (2.5-4.9) 05/29/24 06:05 Magnesium 2.1 mg/dl (1.7-2.4) 05/29/24 06:05 Blood Type O Positive 05/26/24 07:28 Antibody Screen NEGATIVE 05/26/24 07:28 Crossmatch See Detail 05/26/24 07:28 Impressions Lumbar Spine X-Ray 05/26/24 00:00 FL lumbar spine 2-3V CLINICAL HISTORY: L4-S1 DECOMP/FUSION COMPARISON STUDY: None. FLUOROSCOPY TIME: 26.4 seconds. Ka,r: 19.37 mGy FLUOROSCOPIC IMAGES: 2 FINDINGS: Fluoroscopy was provided during L4-L5 discectomy with interbody spacer placement. Posterior decompression is noted with bilateral pedicle screw fusion from L4 through S1. Hardware is intact. IMPRESSION: Fluoroscopy provided during L4-L5 discectomy and L4-S1 posterior decompression and fusion. ACT 112: Negative or not required by law. Electronically signed by: Abelino Sherman M.D. 05/26/2024 11:53 AM KUB X-Ray 05/29/24 08:18 KUB HISTORY: Acute generalized abdominal pain with constipation nausea, constipation COMPARISON: Fluoroscopic images of the spine 05/26/2024 FINDINGS: Nonobstructive bowel gas pattern. Moderate colonic fecal retention. No renal calculi. No ureteral calculi. No pneumoperitoneum or pneumatosis. No acute fracture identified. 3 level lower lumbar spinal fusion with single level discectomy. Overlying surgical drainage catheter. Right hip arthroplasty. Severe left hip osteoarthritis. IMPRESSION: 1. Nonobstructive bowel gas pattern. 2. Moderate colonic fecal retention. ACT 112: Negative or not required by law. The above report was generated using voice recognition software. It may contain grammatical, syntax or spelling errors. Electronically signed by: Daryl Ball M.D. 05/29/2024 9:02 AM
[2024-05-29] MEDS: bisacodyL 10 MG SUPP PR STA (09:16)
[2024-05-29] MEDS: bisacodyL 10 MG SUPP PR PRN (09:25)
[2024-05-29] MEDS: MINERAL OIL ENEMA 133 ML BTL PR ONE (10:45)
[2024-05-30 08:18] VITALS: RESP 17; TEMP 97.9; O2SAT 99
[2024-05-30 08:19] LABS: BUN Creatinine Ratio 27.4 (10-20); Calcium 8.9 mg/dl (8.6-10.3); Creatinine Clr Calc Pharmacy 35.3 ml/min; Magnesium 2.1 mg/dl (1.7-2.4); Phosphorus 2.6 mg/dl (2.5-4.9)
[2024-05-30 08:33] LABS: Hematocrit (blood only) 37.4 % (37.0-47.0); Mean Corpuscular Hemoglobin 31.3 pg (25.0-34.0); Mean Corpuscular Hgb Conc 32.1 g/dL (32.0-36.0); Mean Corpuscular Volume 97.7 fL (80.0-100.0); Mean Platelet Volume 9.6 fL (9.4-12.4); Platelet Count 263 K/uL (130-400); RDW Standard Deviation 46.2 fL (36.4-46.3); Red Blood Count 3.83 M/uL (4.20-5.40); White Blood Count 12.61 K/ul (4.8-10.8)
--- NOTE | 2024-05-30 08:52 | Hospitalist Progress Note ---
Date of Service May 30, 2024 Assessment & Plan (1) Lumbosacral spondylosis with radiculopathy: Plan Assessment and plan: Lumbar spondylosis with radiculopathy Lumbar spondylolisthesis L4-5 Lumbar spinal stenosis with neurogenic claudication S/p lumbar decompression 05/26 Activity and DVT prophylaxis as per primary team Continue to monitor ANIL outputanticipate ADC tomorrow Constipation Hx irritable bowel syndrome With nausea/vomiting x 1 on 05/29, KUB negative for obstruction but does show stool burden Will give Dulcolax suppository x 1, and mineral oil enema if no success, last BM 05/24 -Will hold questran for now as she does not report diarrhea just fecal incontinence at baseline Hx HTN: Continue lisinopril on DC Hyperkalemia resolved Leukocytosis -reactive 2/2 to surgery and steroids -monitor, repeat cbc in a.m. CKD stage III Creatinine stable and at baseline Plan for ADC today if cleared by primary team. Patient now moving her bowels. No further nausea/vomiting. Recommend continuing bowel regimen and lisinopril on DC DVT Px: As per primary team Full code I spent a total of 30 minutes reviewing notes, outpatient records, labs, medication, coordinating, documenting and providing care for this patient excluding time spent in the performance of separately billed services. Admission and Anticipated Discharge Date Admission Date: May 26, 2024 Supervising Physician Co-Signing Physician Notes Pt seen and examined by me, care coordinated w/ T. ALICE Arnett, pls refer to her note above for further detail. Pt had several BMs, and does not have any more abd. pain, no nausea or vomiting, she is tolerating food. She reports having hx of IBS and plans to follow up on that with her PCP and GI. Abdomen soft, + bowel sounds. Lungs CTAB, heart sound regular. Pt is ambulating. No dizziness or lightheadedness on ambulation. likely to be Dc'ed today. MD Keyanna Subjective Patient seen and examined. No apparent distress. Patient reports feeling better this morning. Had a bowel movement yesterday after suppository. No further vomiting/nausea. Denies any abdominal pain. Anxious for discharge home today. Review of Systems Review of Systems: All systems reviewed & are unremarkable except as noted in HPI & below Physical Exam Physical Exam: Gen: WD/WN, F, NAD, A&O x3 HEENT: Normocephalic, atraumatic, conjunctivae moist, sclerae anicteric, mucous membranes moist. Lung: Clear to Auscultation bilaterally, no wheezes/rales/rhonchi Heart: Regular rate, regular rhythm, no murmurs, rubs, or gallops Abdomen: Soft, NT, ND +BS x 4 Extremities: No edema, ANIL drain in place, serosang drainage Skin: Warm, no rash, negative turgor. : + xiong draining yellow urine Constitutional: WD/WN, vitals as above Results & Data Results & Data Vital Signs (Past 12 Hours) Vital Signs Temp Pulse Resp BP Pulse Ox O2 Del Method 05/30/24 07:28 36.6 C 65 17 143/80 H 99 Room Air Diagnostic Findings Laboratory Results WBC 12.61 K/ul (4.8-10.8) H 05/30/24 07:34 RBC 3.83 M/uL (4.20-5.40) L 05/30/24 07:34 Hgb 12.0 g/dl (12.0-16.0) 05/30/24 07:34 Hct 37.4 % (37.0-47.0) 05/30/24 07:34 MCV 97.7 fL (80.0-100.0) 05/30/24 07:34 MCH 31.3 pg (25.0-34.0) 05/30/24 07:34 MCHC 32.1 g/dL (32.0-36.0) 05/30/24 07:34 RDW Std Deviation 46.2 fL (36.4-46.3) 05/30/24 07:34 RDW Coeff of Eddie 13.0 % (11.5-14.5) 05/30/24 07:34 Plt Count 263 K/uL (130-400) 05/30/24 07:34 MPV 9.6 fL (9.4-12.4) 05/30/24 07:34 Immature Gran % (Auto) 0.4 % 05/27/24 07:04 Neut % (Auto) 70.3 % 05/27/24 07:04 Lymph % (Auto) 19.3 % 05/27/24 07:04 [place] % (Auto) 9.7 % 05/27/24 07:04 Eos % (Auto) 0.1 % 05/27/24 07:04 Baso % (Auto) 0.2 % 05/27/24 07:04 Neut # (Auto) 8.58 K/uL (1.40-6.50) H 05/27/24 07:04 Lymph # (Auto) 2.36 K/uL (1.20-3.40) 05/27/24 07:04 [place] # (Auto) 1.19 K/uL (0.11-0.59) H 05/27/24 07:04 Eos # (Auto) 0.01 K/uL (0.00-0.50) 05/27/24 07:04 Baso # (Auto) 0.03 K/uL (0.00-0.20) 05/27/24 07:04 Immature Gran # (Auto) 0.05 K/uL (0.01-0.20) 05/27/24 07:04 Sodium 138 mmol/L (136-145) 05/30/24 07:34 Potassium 4.0 mmol/L (3.5-5.1) 05/30/24 07:34 Chloride 105 mmol/L (98-107) 05/30/24 07:34 Carbon Dioxide 26 mmol/L (21-32) 05/30/24 07:34 Anion Gap 7 (3-11) 05/30/24 07:34 BUN 34 mg/dl (6-23) H 05/30/24 07:34 Creatinine 1.24 mg/dl (0.6-1.2) H 05/30/24 07:34 Est Cr Clr Drug Dosing 35.3 ml/min 05/30/24 07:34 eGFR 44.54 05/30/24 07:34 BUN/Creatinine Ratio 27.4 (10-20) H 05/30/24 07:34 Glucose 93 mg/dl (70-99(Fasting)) 05/30/24 07:34 Calcium 8.9 mg/dl (8.6-10.3) 05/30/24 07:34 Phosphorus 2.6 mg/dl (2.5-4.9) 05/30/24 07:34 Magnesium 2.1 mg/dl (1.7-2.4) 05/30/24 07:34 Blood Type O Positive 05/26/24 07:28 Antibody Screen NEGATIVE 05/26/24 07:28 Crossmatch See Detail 05/26/24 07:28 Impressions Lumbar Spine X-Ray 05/26/24 00:00 FL lumbar spine 2-3V CLINICAL HISTORY: L4-S1 DECOMP/FUSION COMPARISON STUDY: None. FLUOROSCOPY TIME: 26.4 seconds. Ka,r: 19.37 mGy FLUOROSCOPIC IMAGES: 2 FINDINGS: Fluoroscopy was provided during L4-L5 discectomy with interbody spacer placement. Posterior decompression is noted with bilateral pedicle screw fusion from L4 through S1. Hardware is intact. IMPRESSION: Fluoroscopy provided during L4-L5 discectomy and L4-S1 posterior decompression and fusion. ACT 112: Negative or not required by law. Electronically signed by: Abelino Sherman M.D. 05/26/2024 11:53 AM KUB X-Ray 05/29/24 08:18 KUB HISTORY: Acute generalized abdominal pain with constipation nausea, constipation COMPARISON: Fluoroscopic images of the spine 05/26/2024 FINDINGS: Nonobstructive bowel gas pattern. Moderate colonic fecal retention. No renal calculi. No ureteral calculi. No pneumoperitoneum or pneumatosis. No acute fracture identified. 3 level lower lumbar spinal fusion with single level discectomy. Overlying surgical drainage catheter. Right hip arthroplasty. Severe left hip osteoarthritis. IMPRESSION: 1. Nonobstructive bowel gas pattern. 2. Moderate colonic fecal retention. ACT 112: Negative or not required by law. The above report was generated using voice recognition software. It may contain grammatical, syntax or spelling errors. Electronically signed by: Daryl Ball M.D. 05/29/2024 9:02 AM
--- NOTE | 2024-05-30 11:30 | Discharge Summary ---
Date of Service May 30, 2024 Admission HPI Per Admitting Provider This is a 71-year-old female presents chronic persistent back and leg pain and failing course of nonoperative care she is here for surgical invention. Principal Diagnosis Lumbar spondylolisthesis with radiculopathy Discharge Data Allergies Allergy/AdvReac Type Severity Reaction Status Date / Time Sulfa (Sulfonamide Allergy Unknown N/V Verified 05/26/24 07:40 Antibiotics) Consultations 05/26/24 12:47 Consult Hospitalist Routine Procedures Performed Operation Date: 05/26/24 09:35 Actual Procedures p L4-S1 Decompression and Fusion, Removal Intraspinous Device, Spinal Cord Monitoring(Not Applicable) - Mikey Sanchez DO Ordered Studies 05/26/24 FL lumbar spine 2-3V Routine Hospital Course (1) Lumbosacral spondylosis with radiculopathy: Patient underwent lumbar decompression fusion tolerated as well as taken orthopedic for postoperative. Postop patient progressed appropriately. Marked improvement of her leg pain. Strength testing. NAIL drain decreasing. Simply discharged home. Discharge orders instructions on the chart for further view. Total Time Total Time Spent Total Time Spent (In Minutes): 20 minutes Discharge Plan Discharge Items Patient Disposition: Home - Self-Care Reason For Visit: Spinal Stenosis, Lumbar Region with Neurogenic Cla Discharge Diagnosis: Lumbar spondylosis with radiculopathy Activity: As commented below Non-emergency contact: Primary Care Provider Call non-emergency contact if: you have any medication questions Follow-up/Referrals: PCP,NO [Primary Care Provider] - Diet: Regular Addtl Attending Provider Instructions: ACTIVITY RECOMMENDATIONS: SELF CARE INSTRUCTIONS AFTER THORACIC/LUMBAR FUSIONS 1. You may walk to your tolerance. It is good exercise for your legs and back. Expect some back and intermittent leg aches and pains. 2. You may perform "counter-top" level activities (make a sandwich, kalin with a project, etc.). 3. No bending or lifting of more than 10 pounds or back twisting of any nature (roll like a log when turning in bed). 4. You may ride in a car for 20-30 minutes at a time. No driving until after your first visit with your doctor. 5. Frequent changes of position and restricting sitting to 30 minutes at a time will help limit the amount of back spasms and stiffness you may experience. 6. You may discontinue the use of ambulatory aids (cane, crutches, etc.) once your strength and confidence allow. 7. You may hand paint mixer the shower and let water strike your incision when you arrive home at least once daily. Do not take a tub bath, sit in a hot tub or go into a swimming pool until after your first recheck in the office. 8. You may resume previous diet. SPECIAL CARE INSTRUCTIONS: VERY IMPORTANT TO READ AND REVIEW A. Your surgical incision has been closed with a cosmetic suture under the skin that will dissolve in about 6 weeks. In 14 days, you can use a pair of clean scissors and cut the suture that is left outside of the skin at the ends of your incision. 1. The small skin tapes can be removed 7 days after surgery if they have not fallen off by that point. 2. You may keep the wound open to air as much as possible to promote healing after post-op day number 5 unless told otherwise by your doctor. 3. If you think the wound looks like it is becoming infected (redness or worsening drainage) and/or you are experiencing fever, chill or worsening back pain and muscle spasms, contact the office so that we may evaluate you as soon as possible. B. Complications are uncommon, but please contact us if you have any signs or symptoms of: 1. wound infection (fever higher than 102.5 degrees F, redness, separation of wound, drainage, or increasing pain from the incision) 2. blood clots in legs (pain, swelling, redness and warmth in legs) 3. urinary tract infection (fever higher than 102.5 degrees F, burning upon urination or increased frequency of urination) 4. nerve problems (inability to walk on your toes or heels, numbness, loss of bowel or bladder control) 5. any other symptoms that concern you C. Please call the office at if you have any concerns or questions about your operation or recovery. D. No smoking! Smoking drastically decreases the chance of a solid fusion. E. Do not take any anti-inflammatory medications (Indocin, Advil, Motrin, Aspirin, Naprosyn, etc.) as these may inhibit the chance of a solid fusion. Tylenol is okay to take for pain. MANAGING PAIN AFTER SPINAL SURGERY 1. Narcotic medication is intended for short-term use and will be provided for surgical pain. Surgical pain usually lasts for a period of 4-6 weeks. Narcotic medication includes Percocet, Vicodin, Darvocet, Tylenol #3 or Lortab. 2. Longer-term pain is more appropriately treated with non-narcotic medication such as Tylenol ES. 3. Muscle spasm is not appropriately treated with narcotics. Muscle relaxers such as Soma, Flexeril or Skelaxin can be used along with Tylenol ES. 4. Remember that we all live with some "aches and pains". This is not unusual or uncommon after an injury or as we get older. a. Back pain is expected and may include muscle spasms for 4 to 6 weeks after surgery. The pain should gradually improve. If the pain worsens for no apparent reason, please contact the office. b. Intermittent leg pain may also be experienced and should not be concerned about unless it worsens for no apparent reason. If so, please contact the office. 5. We will provide appropriate medication within the normal guidelines of their prescribed use. We will also be very cautious and aware of potential abuse and extended duration of patients' medication needs. a. Pain medications are for your comfort and to assist with sleep and rest so that the tissue can heal. They are not provided in order to return to normal activity and should not be used through the day. To do so or worsening pain at night can result from ongoing tissue damage and development of tolerance to the prescribed medicine. 6. Please allow 2-3 days to process refills. Prescriptions will not be mailed but must be picked up at the office. FOLLOW UP VISIT: Keep your scheduled follow-up appointment. Any questions, please call the office at . Pending Studies at Discharge: No Stand-Alone Forms: [facility] Medications and DC Order Prescriptions: New tramadol 50 mg tablet 50 mg PO Q6H PRN (Reason: pain, moderate) Qty: 30 0RF oxycodone 5 mg tablet 5 mg PO Q6H PRN (Reason: pain) Qty: 30 0RF Continued multivitamin Tablet 1 tab PO QAM cetirizine [Zyrtec] 10 mg Tablet 10 mg PO QAM glucosamine sulfate [Glucosamine] 500 mg Tablet 500 mg PO DAILY Rx Instructions: administer with a meal tramadol 50 mg Tablet 50 mg PO BID lisinopril 10 mg Tablet 10 mg PO QAM ibuprofen 400 mg Tablet 400 mg PO BID Vitamin C 100 mg Tablet 100 mg PO DAILY cholestyramine (with sugar) 4 gram Powder 4 g PO QDD Rx Instructions: administer w/meal; avoid other meds within 1hr before or 4-6hr after dose vitamin E (dl, acetate) 180 mg (400 unit) Capsule 180 mg PO QAM cholecalciferol (vitamin D3) [Vitamin D3] 125 mcg (5,000 unit) Tablet 125 mcg PO QAM diclofenac sodium [Voltaren] 1 % Gel 2 g TOPICAL DAILY PRN (Reason: prn) Discharge Orders: Discharge Order (Routine); Ordered 05/30/24 Ordered By: Mikey Sanchez Admission Data Admit Date/Time: 05/26/24 11:29 Attending Provider: Mikey Sanchez Admit Provider: Mikey Snachez Primary Care Provider: PCP,NO Other Providers: Debbi Guerra; Livan Fortune
[2024-05-30 12:04] VITALS: BP 147/86; PULSE 71
== END 2024-05-30 12:32 | disposition home or self-care (01) | DRG 428 ==
LOC: ASU 06:53 → 3N 11:29